=== PATIENT | male | born 1970 | race Caucasian/White ===

== ENCOUNTER 2025-01-07 10:34 | Emergency (ER) | payer BC, MEDICAID, SELFPAY ==
[2025-01-07 10:36] VITALS: BMI 32.9
[2025-01-07 10:47] VITALS: BP 159/99; PULSE 145; RESP 20; TEMP 36.7; O2SAT 95
--- NOTE | 2025-01-07 10:51 | EKG_ITS ---
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
--- NOTE | 2025-01-07 10:53 | PD.EDRME ---
Rapid Medical Screening Exam RME Arrival date/time: 01/07/25 10:34 54-year-old male presents the emergency room today for acute alcohol intoxication patient was clean from alcohol for approximately 3 years and started drinking 3 days ago patient is here with brother is very concerned Chief Complaint: General Adult/Misc Complain Vital signs: Vital Signs Temperature 98.1 F 01/07/25 10:47 Pulse Rate 145 H 01/07/25 10:47 Respiratory Rate 20 01/07/25 10:47 Blood Pressure 159/99 H 01/07/25 10:47 Pulse Oximetry (%) 95 01/07/25 10:47 Oxygen Delivery Method Room Air 01/07/25 10:47
[2025-01-07 11:22] LABS: Basophils # (Auto) 0.1 Thou/mm3 (0.0-0.2); Basophils % (Auto) 1 % (0-2.5); Eosinophils # (Auto) 0.1 Thou/mm3 (0.0-0.5); Eosinophils % (Auto) 1 % (0-10); Hematocrit 50.9 % (41.0-53.0); Hemoglobin 17.9 g/dL (13.5-16.0); Immature Granulocytes % (Auto) 0 % (0-0); Immature Granulocytes Auto 0.03 Thou/mm3 (0.00-0.00); Lymphocytes # (Auto) 3.7 Thou/mm3 (1.0-4.8); Lymphocytes % (Auto) 30 % (10-50); Mean Corpuscular HGB Conc 35.2 g/dl (31.0-37.0); Mean Corpuscular Hemoglobin 30.2 pg (25.0-35.0); Mean Corpuscular Volume 86 fL (80-100); Monocytes # (Auto) 0.4 Thou/mm3 (0.0-0.8); Monocytes % (Auto) 3 % (0-12); Neutrophils % (Auto) 65 % (37-80); Nucleated Red Blood Cell % 0 /100 WBC (0); Platelet Count 347 Thou/mm3 (140-440); RDW Standard Deviation 40.1 fL (35.1-43.9); Red Blood Count 5.92 Miln/mm3 (4.50-5.90); White Blood Count 12.3 Thou/mm3 (3.8-10.6)
[2025-01-07 11:23] LABS: Amphetamine/Methamp Scrn,U Negative (Negative); Barbiturate Screen,Urine Negative (Negative); Benzodiazepines Screen,Urine Negative (Negative); Benzoylecgonine Screen, Ur Negative (Negative); Fentanyl Screen,Urine Negative (Negative); Opiate Screen,Urine Negative (Negative); THC Screen,Urine Negative (Negative)
[2025-01-07 11:50] LABS: Alanine Aminotransferase 101 U/L (10-49); Albumin, Serum 4.6 gm/dL (3.5-5.0); Albumin/Globulin Ratio 1.6 (1.2-2.2); Alcohol, Blood Medical 348.9 mg/dL (0-10.0); Alkaline Phosphatase 137 U/L (46-116); Anion Gap 18 (7-16); Aspartate Amino Transferase 111 U/L (0-34); BUN/Creatinine Ratio 11 Ratio (12-20); Bilirubin,Total 0.7 mg/dL (0.3-1.2); Blood Urea Nitrogen 16 mg/dL (9-23); Calcium 8.4 mg/dL (8.3-10.6); Calcium (Corrected) 8.4 mg/dL (8.5-10.1); Carbon Dioxide 19.1 mMol/L (20.0-31.0); Chloride 101 mMol/L (98-107); Creatinine (Component) 1.4 mg/dL (0.6-1.3); Estimated Creatinine Clearance 61.4 mL/min (>60); Globulin 2.9 gm/dL (2.3-3.5); Osmolality,Calculated 299 (275-295); Potassium 3.7 mMol/L (3.4-5.1); Sodium 138 mMol/L (136-145); Total Protein 7.5 gm/dL (5.7-8.2); Troponin I < 0.020 ng/mL (0.0-0.045); eGFR 59 See Note
[2025-01-07 11:52] LABS: Glucose 515 mg/dL (74-106)
--- NOTE | 2025-01-07 12:02 | PC.NURSE ---
PT REFUSED TO BE ADMITTED IN THE HOSPITAL DESPITE EDUCATION BY DR. PACHECO AT BEDSIDE REGARDING RISKS OF LEAVING AMA. PT STARTED TO GET DRESSED AND WALKED OUT OF UNIT, PER MANAGEMENT TECH AT BEDSIDE. RN HAD NO CHANCE TO PERSUADE PT TO STAY PT WAS ALREADY WALKING OUT OF UNIT. RN UNABLE TO PERFORM ASSESSMENTS AT THIS TIME. PT LEFT AMA WITHOUT SIGNING AMA FORM.
--- NOTE | 2025-01-07 12:12 | PD.EDADULT ---
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 PACHECO MAIN ED EVALUATION: 54 year old male with history of hypertension and diabetes presents to the ED brought in by brother for alcohol intoxication. Patient reports he has been drinking heavily for 1 week and during that time not taking his Metformin. While in the ED patient has no complaints and was brought in at the urgence of his brother. Patient was refusing to stay and was advised to stay for monitoring, check his electrolytes, and insulin drip. However, patient became very angry, took off his gown and refused to stay in the ED. Patient eloped. Related Data Home Medications ?Medication ?Instructions ?Recorded ?Confirmed lisinopril 10 mg tablet 20 mg PO QDAY 01/26/19 06/20/24 metformin 500 mg tablet 1,000 mg PO BID 01/26/19 06/20/24 Allergies Allergy/AdvReac Type Severity Reaction Status Date / Time No Known Allergies Allergy Verified 01/07/25 12:23 Review of Systems Review of Systems Narrative Review of Systems: Gen: No fever, no chills, no weight loss EYES: No discharge, no visual changes, no pain HEENT: No ear pain, no congestion, no sore throat PULM: no shortness of breath, no cough, no congestion CV: No chest pain, no dyspnea on exertion, no palpitations, no chest tightness GI: No nausea, no vomiting, no diarrhea, no pain, no constipation : No frequency, no urgency,? no dysuria Musc/skel: No joint pain, no back pain Skin: No rash, no ecchymosis, no lesions Neuro: No weakness, no headache Past Medical History Past Medical History CARDIAC: Positive Hypertension ENDOCRINE: Positive Diabetes Mellitus Type 2 Surgical History SURGICAL: Negative Cardiac Surgery, Endocrine Surgery, Ear Surgery, Abdominal Surgery, Nephrectomy, Joint Replacement, Neurologic Surgery or Vasectomy Social History SMOKING STATUS: Never smoker ED Exam General Limitations: Present no limitations General appearance: Present alert, in no apparent distress and other (Smells of alcohol, no slurred speech) Head Head exam: Present atraumatic, normocephalic and normal inspection Eye Eye exam: Present normal appearance, PERRL and EOMI ENT ENT exam: Present normal exam, normal oropharynx and mucous membranes moist Neck Neck exam: Present normal inspection, full ROM, trachea midline and other (Old healed tracheostomy scar ) Chest Chest inspection: Present normal inspection and symmetric chest wall rise Respiratory Respiratory exam: Present normal lung sounds bilaterally Cardiovascular Cardiovascular exam: Present regular rate, normal rhythm and normal heart sounds Abdominal Exam Abdominal exam: Present soft and normal bowel sounds Extremities Exam Extremities exam: Present normal inspection and full ROM Back Exam Back exam: Present normal inspection and full ROM Neurological Exam Neurological exam: Present alert, oriented X3 and CN II-XII intact Psychiatric Psychiatric exam: Present normal affect and normal mood Skin Skin exam: Present warm, dry, intact and normal color Course Course Course Narrative: 1212: Patient left against medical advise Quality Measures none Orders Category Date Time Status EKG (ED ONLY) *Do not use* NOW Care 01/07/25 10:51 Completed EKG (ED Only) Stat Exams 01/07/25 10:51 Draft Alcohol, Blood Medical Stat Lab 01/07/25 11:11 Completed CBC Stat Lab 01/07/25 11:11 Completed Comprehensive Metabolic Panel Stat Lab 01/07/25 11:11 Completed Drug Screen,Urine Stat Lab 01/07/25 11:07 Completed Troponin I Stat Lab 01/07/25 11:11 Completed Sodium Chloride 0.9% 1000 ml [Ns] 1,000 ml Med 01/07/25 12:01 Discontinued IV 999 mls/hr Sodium Chloride 0.9% 1000 ml [Ns] 1,000 ml Med 01/07/25 12:02 Discontinued IV 999 mls/hr Vital Signs Vital signs: Vital Signs Temperature 98.1 F 01/07/25 10:47 Pulse Rate 145 H 01/07/25 10:47 Respiratory Rate 20 01/07/25 10:47 Blood Pressure 159/99 H 01/07/25 10:47 Pulse Oximetry (%) 95 01/07/25 10:47 Oxygen Delivery Method Room Air 01/07/25 10:47 Pulse ox is 95% on room air which is adequate. Critical Care Time Critical Care Time Critical Care Time: Yes Total Critical Care Time (min.): 35 Attestation: The high probability of sudden, clinically significant deterioration in the patient's condition required the highest level of my preparedness to intervene urgently. The services I provided to this patient were to treat and/or prevent clinically significant deterioration. Services included the following: chart data review, reviewing nursing notes and/or old charts, documentation time, store sales consultant collaboration regarding findings and treatment options, medication orders and management, direct patient care, vital sign assessments and ordering, interpreting and reviewing diagnostic studies and lab tests. Aggregate critical care time includes only time during which I was engaged in work directly related to the patient's care, as described above, whether at bedside or elsewhere in the Emergency Department. It did not include time spent performing other reported procedures or the services of residents, students, nurses or physician assistants. Discharge Plan Plan Patient Disposition: Left Against Medical Advice Prescriptions/Referrals Prescriptions/Med Rec: No Action metformin 500 mg tablet 1,000 mg PO BID lisinopril 10 mg tablet 20 mg PO QDAY Referrals: Rob Orellana MD [Primary Care Provider] - In 1 week Problem List Clinical Impression: Alcoholic intoxication Patient/Caregiver Discharge Instructions Print Language: Panamanian MDM Patient Acuity High Acuity (complete MDM) Clinical Information Provided by: patient and family (Brother ) Medical Records reviewed [facility] (I reviewed admission from 06/20/2024 through 06/21/2024 for alcohol intoxication) Meds/Rx considered, not ordered None Labs/Rad/Tests considered, not ordered None Describe: As noted above Chronic Illness/Social Conditions which may negatively complicate care or outcome(s)-explain: ETOH/drugs/substance abuse Explain: Alcoholism EKG EKG Interpretation(s): EKG at 10:55 AM shows sinus tachycardia, rate 141, TX 118ms, QT 288ms, QTc, 442, normal axis, normal intervals, no acute ischemic changes, no STEMI. Labs Labs: Interpreted by ar Lab(s) Interpretation(s): As noted above Imaging Imaging interpretation: none or see narrative above Medication Administration(s) Medication Administration History Discontinued Medications Sodium Chloride (Ns) 1,000 mls @ 999 mls/hr IV .Q1H1M ONE Stop: 01/07/25 13:01 Sodium Chloride (Ns) 1,000 mls @ 999 mls/hr IV .Q1H1M ONE Stop: 01/07/25 13:02 See above
== END 2025-01-07 12:11 | disposition left against medical advice (07) ==
PROVIDERS: Nurse Practitioner Primary Care; Emergency Provider Emergency Medicine; PCP Family Medicine
DX: F10.129 Alcohol abuse with intoxication, unspecified (principal); R00.0 Tachycardia, unspecified; I10 Essential (primary) hypertension; Y90.8 Blood alcohol level of 240 mg/100 ml or more; Z53.29 Procedure and treatment not carried out because of patient's decision for other reasons
CPT/HCPCS: 36415; 80053; 80307; 80320; 82010; 82803; 84484; 85025; 93005; 99291; G0480

== ENCOUNTER 2025-01-07 12:19 | Emergency (ER) | payer BC, MEDICAID, SELFPAY ==
--- NOTE | 2025-01-07 12:24 | PC.NURSE ---
PT BROUGHT BACK BY BROTHER. WHEN ASKED PT IF HE WAS WANTING TO BE TREATED BY THE MD, PT REPLIES I DON'T WANT TO BE ADMITTED. EXPLAINED THAT UNTIL ALL TESTS ARE BACK WON'T KNOW IF HE WILL NEED TO BE ADMITTED. INFORMED THAT SOME OF HIS LABS FROM EARLIER ARE ABNORMAL. PT AGREES TO BE TREATED NOW BUT REPEATS I DON'T WANT TO HAVE TO STAY.
[2025-01-07 12:35] VITALS: BP 122/95; PULSE 142; RESP 22; TEMP 36.7; O2SAT 94; BMI 31.4
[2025-01-07] MEDS: SODIUM CHLORIDE 0.9% 1000 ML 1,000 ML 999 ML IV ×3 (12:57→14:38)
[2025-01-07] MEDS: POTASSIUM CHLORIDE 20 mEq TABCR 40 MEQ PO (12:58)
--- NOTE | 2025-01-07 13:07 | PD.EDADULT ---
ED General RME/HPI General Chief complaint: General Adult/Misc Complain Stated complaint: BEEN DRINKING, JUST LEFT AMA Time Seen by Provider: 01/07/25 12:28 Arrival date/time: 01/07/25 12:19 Limitations: no limitations RME / HPI RME / HPI narrative: 54 year old male with history of hypertension and diabetes presents to the ED brought in by brother for alcohol intoxication. Patient reports he has been drinking heavily for 1 week and during that time not taking his Metformin. While in the ED patient has no complaints and was brought in at the urgence of his brother. Patient was refusing to stay and was advised to stay for monitoring, check his electrolytes, and insulin drip. However, patient became very angry, took off his gown and refused to stay in the ED. Patient left against medical advise at 12:12 today and returned at 12:20. Related Data Home Medications ?Medication ?Instructions ?Recorded ?Confirmed lisinopril 10 mg tablet 20 mg PO QDAY 01/26/19 06/20/24 metformin 500 mg tablet 1,000 mg PO BID 01/26/19 06/20/24 Allergies Allergy/AdvReac Type Severity Reaction Status Date / Time No Known Allergies Allergy Verified 01/07/25 12:23 Review of Systems Review of Systems Narrative Review of Systems: Gen: No fever, no chills EYES: No discharge, no pain HEENT: No ear pain, no congestion, no sore throat PULM: no shortness of breath, no cough, no congestion CV: No chest pain, no palpitations, no chest tightness GI: No nausea, no vomiting, no diarrhea, no pain, no constipation : No frequency, no urgency,? no dysuria Musc/skel: No joint pain, no back pain Skin: No rash, no ecchymosis, no lesions Psyc: No hallucinations, no depression Heme/Lymph: No easy bleeding or bruising tendencies Neuro: No weakness, no headache Past Medical History Past Medical History CARDIAC: Positive Hypertension ENDOCRINE: Positive Diabetes Mellitus Type 2 Family History FAMILY HISTORY: Negative Family Cancer Surgical History SURGICAL: Negative Cardiac Surgery, Endocrine Surgery, Ear Surgery, Abdominal Surgery, Nephrectomy, Joint Replacement, Neurologic Surgery or Vasectomy Social History SMOKING STATUS: Never smoker ED Exam General Limitations: Present no limitations General appearance: Present alert, in no apparent distress and other (smells of alcohol, no slurred speech ) Head Head exam: Present atraumatic, normocephalic and normal inspection Eye Eye exam: Present normal appearance, PERRL and EOMI ENT ENT exam: Present normal exam, normal oropharynx and mucous membranes moist Neck Neck exam: Present full ROM, trachea midline and other (old healed tracheostomy scar noted ) Chest Chest inspection: Present normal inspection and symmetric chest wall rise Respiratory Respiratory exam: Present normal lung sounds bilaterally Cardiovascular Cardiovascular exam: Present regular rate, normal rhythm and normal heart sounds Abdominal Exam Abdominal exam: Present soft and normal bowel sounds Extremities Exam Extremities exam: Present normal inspection and full ROM Back Exam Back exam: Present normal inspection and full ROM Neurological Exam Neurological exam: Present alert, oriented X3 and CN II-XII intact Psychiatric Psychiatric exam: Present normal affect and normal mood Skin Skin exam: Present warm, dry, intact and normal color Course Quality Measures none Orders Category Date Time Status Mainframe Software Developer Q4H START 00 Care 01/07/25 13:18 Completed Miscellaneous Nursing Order NOW Care 01/07/25 14:31 Completed Miscellaneous Nursing Order NOW Care 01/07/25 14:32 Completed Beta Hydroxybutyrate Stat Lab 01/07/25 13:10 Completed Urinalysis Stat Lab 01/07/25 13:45 Completed VBG [Venous Blood Gas] Stat Lab 01/07/25 13:10 Completed Insulin Reg 100 Units/100 ml [Myxredlin] Med 01/07/25 12:28 Discontinued 100 unit in 100 ml IV 0.1 unit/kg/hr Insulin Regular Med 01/07/25 14:27 Discontinued 6 unit SC X1 ONE Ondansetron Inj [Zofran Inj] Med 01/07/25 14:06 Discontinued 4 mg IV X1 ONE Potassium Chloride [K-Dur] Med 01/07/25 12:28 Discontinued 40 meq PO X1 ONE Sodium Chloride 0.9% 1000 ml [Ns] 1,000 ml Med 01/07/25 12:27 Discontinued IV 999 mls/hr Sodium Chloride 0.9% 1000 ml [Ns] 1,000 ml Med 01/07/25 12:28 Discontinued IV 999 mls/hr Sodium Chloride 0.9% 1000 ml [Ns] 1,000 ml Med 01/07/25 14:28 Discontinued IV 999 mls/hr Reevaluation(s) Reevaluation #1: We reviewed all the results, analysis, and treatment plans. Patient is amenable to discharge. Strict return precautions were outlined. Patient was discharged in stable condition. Time: 15:25 Vital Signs Vital signs: Vital Signs Temperature 98.1 F 01/07/25 12:35 Pulse Rate 142 H 01/07/25 12:35 Respiratory Rate 22 H 01/07/25 12:35 Blood Pressure 122/95 H 01/07/25 12:35 Pulse Oximetry (%) 94 L 01/07/25 12:35 Oxygen Delivery Method Room Air 01/07/25 12:35 Pulse ox is 94% on room air which is adequate. Critical Care Time Critical Care Time Critical Care Time: Yes Total Critical Care Time (min.): 35 Attestation: The high probability of sudden, clinically significant deterioration in the patient's condition required the highest level of my preparedness to intervene urgently. The services I provided to this patient were to treat and/or prevent clinically significant deterioration. Services included the following: chart data review, reviewing nursing notes and/or old charts, documentation time, websphere commerce consultant collaboration regarding findings and treatment options, medication orders and management, direct patient care, vital sign assessments and ordering, interpreting and reviewing diagnostic studies and lab tests. Aggregate critical care time includes only time during which I was engaged in work directly related to the patient's care, as described above, whether at bedside or elsewhere in the Emergency Department. It did not include time spent performing other reported procedures or the services of residents, students, nurses or physician assistants. Discharge Plan Plan Patient Disposition: HOME (Self Care) Prescriptions/Referrals Prescriptions/Med Rec: No Action metformin 500 mg tablet 1,000 mg PO BID lisinopril 10 mg tablet 20 mg PO QDAY Referrals: Amanda Ashraf FNP-C [Primary Care Provider] - In 1 week Problem List Clinical Impression: Alcoholic intoxication, Hyperglycemia without ketosis Patient/Caregiver Discharge Instructions Education Materials: ED Diabetes with High Blood Sugar, ED Alcohol Intoxication Additional Instructions: Do not drink alcohol in excess, stop alcohol completely for better health. You can follow-up with your primary care doctor and/or [facility] if you feel ready for alcohol and or drug rehabilitation. Feel free return to the emergency department sooner if symptoms worsen or if you notice any new, issues. Print Language: Wolof Stand Alone Forms: Laurie Award Info., Patient Portal Info Letter MDM Patient Acuity High Acuity (complete MDM) Narrative: Lina King, am scribing for and in the presence of Dr. Zavala. Clinical Information Provided by: patient and family Medical Records reviewed [facility] (I reviewed admission from 06/20/2024 through 06/21/2024 for alcohol intoxication ) Meds/Rx considered, not ordered None Labs/Rad/Tests considered, not ordered None Chronic Illness/Social Conditions which may negatively complicate care or outcome(s)-explain: ETOH/drugs/substance abuse EKG EKG not done (EKG was performed earlier today prior to leaving against medical advise ) Labs Labs: Interpreted by ri Lab(s) Interpretation(s): As noted above Imaging Imaging interpretation: none or see narrative above Medication Administration(s) Medication Administration History Discontinued Medications Sodium Chloride (Ns) 1,000 mls @ 999 mls/hr IV .Q1H1M ONE Stop: 01/07/25 13:27 Last Infusion: 01/07/25 14:05 Dose: Infused Documented By: Admin: 01/07/25 12:58 Dose: 999 mls/hr Documented By: SIXTO Insulin Human Regular (Myxredlin) 100 unit in 100 mls @ 8.85 mls/hr IV .[id number] PRN; Protocol PRN Reason: PER PROTOCOL Stop: 02/06/25 12:27 Last Titration: 01/07/25 14:33 Dose: 0 unit/kg/hr, 0 mls/hr Documented By: MARY Co-signed By: BENEDICTO Titration: 01/07/25 14:16 Dose: 0.1 unit/kg/hr, 8.85 mls/hr Documented By: MARY Co-signed By: BENEDICTO Admin: 01/07/25 13:16 Dose: 0.1 unit/kg/hr, 8.85 mls/hr Documented By: SIXTO Co-signed By: PETERSON Sodium Chloride (Ns) 1,000 mls @ 999 mls/hr IV .Q1H1M ONE Stop: 01/07/25 13:28 Last Infusion: 01/07/25 14:00 Dose: Infused Documented By: Admin: 01/07/25 12:57 Dose: 999 mls/hr Documented By: SIXTO Sodium Chloride (Ns) 1,000 mls @ 999 mls/hr IV .Q1H1M ONE Stop: 01/07/25 15:28 Last Infusion: 01/07/25 16:08 Dose: Infused Documented By: Admin: 01/07/25 14:38 Dose: 999 mls/hr Documented By: MARY Insulin Human Regular (Insulin Hum Regular 1 Unit/0.01 Ml (Per Unit)) 6 unit SC X1 ONE Stop: 01/07/25 14:28 Last Admin: 01/07/25 14:39 Dose: 6 unit Documented By: MARY Co-signed By: SIXTO Ondansetron HCl (Ondansetron Inj 2 Mg/Ml Inj 2 Ml) 4 mg IV X1 ONE; Protocol Stop: 01/07/25 14:07 Last Admin: 01/07/25 14:40 Dose: 4 mg Documented By: MARY Potassium Chloride (Potassium Chloride 20 Meq Tabcr) 40 meq PO X1 ONE Stop: 01/07/25 12:29 Last Admin: 01/07/25 12:58 Dose: 40 meq Documented By: SIXTO See above
[2025-01-07 13:16] LABS: Base Excess, Venous -7 (-3-3); O2 Saturation, Venous 95 % (96-97); PCO2, Venous 25 mmHg (36-56); PO2, Venous 69 mmHg (15-58); pH, Venous 7.41 (7.33-7.66)
[2025-01-07] MEDS: INSULIN REG 100 UNITS/100 ML 100 UNIT/100 ML BAG 8.85 UNIT IV (13:16)
[2025-01-07 13:19] VITALS: PULSE 127
[2025-01-07 13:20] LABS: Beta Hydroxybutyrate 0.3 mmol/L (<0.6)
[2025-01-07 13:52] LABS: Collection Type, Urine Clean Catch; Squamous Epithelial Cell,Urine 0 /hpf (0-5)
[2025-01-07 14:31] LABS: Bacteria,Urine Rare; Bilirubin,Urine Negative (Negative); Blood,Urine 1+ (Negative); Clarity,Urine Clear (Clear/Hazy); Color,Urine Lt-Yellow (Lt Yel-Yel); Glucose, Urine 4+ (Negative); Ketones,Urine 1+ (Negative); Leukocyte Esterase,Urine Negative (Negative); Nitrite,Urine Negative (Negative); PH,Urine 6.5 (5.0-7.0); Protein,Urine 2+ (Neg - Trace); RBC,Urine 2 /hpf (0-3); Specific Gravity,Urine 1.043 (1.001-1.035); Urobilinogen,Urine Negative mg/dL (0.0-1.0); WBC,Urine < 1 /hpf (0-5)
--- NOTE | 2025-01-07 14:33 | PC.NURSE ---
PER DR. PACHECO, STOP INSULIN DRIP NOW; WILL PUT IN MORE ORDERS.
[2025-01-07] MEDS: INSULIN HUM REGULAR 1 UNIT/0.01 ML (PER UNIT) 6 UNIT SC (14:39)
[2025-01-07] MEDS: ONDANSETRON INJ 2 MG/ML INJ 2 ML 4 MG IV (14:40)
[2025-01-07 14:43] VITALS: BP 153/89; PULSE 138; RESP 15; TEMP 37.1; O2SAT 96
[2025-01-07 16:09] VITALS: BP 156/100; PULSE 126; RESP 18; TEMP 37.4; O2SAT 100
== END 2025-01-07 16:15 | disposition home or self-care (01) ==
PROVIDERS: Emergency Provider Emergency Medicine; PCP Nurse Practitioner Family
DX: F10.129 Alcohol abuse with intoxication, unspecified (principal); E11.65 Type 2 diabetes mellitus with hyperglycemia; Y90.8 Blood alcohol level of 240 mg/100 ml or more; Z79.84 Long term (current) use of oral hypoglycemic drugs
CPT/HCPCS: 36415; 81001; 82010; 82803; 96361; 96365; 96372; 96375; 99284; J1815; J2405; J7030; A9270

== ENCOUNTER 2025-01-12 14:29 | Inpatient (IN) | payer BC, MEDICAID, SELFPAY ==
[2025-01-12 14:31] VITALS: BMI 32.9
[2025-01-12 15:05] VITALS: BP 79/47; BP 85/50; PULSE 115; RESP 18; TEMP 37.2; O2SAT 97
--- NOTE | 2025-01-12 15:09 | XR_ITS ---
Examination: CT brain head without contrast. 2-D sagittal coronal reconstructions Date and time of exam:January 12, 2025 1535 hrs. Indications: Onset slurred speech today CTDI: vol (mGy):52.7 DLP: (mGycm):1086 Technique: Multiple CT axial sections of the brain have been obtained, 5 mm slice thickness. Contrast has not been administered. 2-D sagittal, coronal reconstructions have been obtained Low dose protocols were performed. One or more of the following dose reduction techniques were used; automated exposure control, adjustment of the mA and/or KV according to patient size, use of iterative reconstruction technique. Findings: No significant ventricular enlargement. Intra-axial or extra-axial hemorrhage density is not seen. No mass effect or midline shift Basal cisterns are not remarkable. Fourth ventricle is midline. Cranial vault intact. Impression: Negative for acute hemorrhage, mass effect or midline shift Advise clinical correlation and follow-up accordingly If symptoms persist, consider brain MRI follow-up, stroke protocol
--- NOTE | 2025-01-12 15:09 | EKG_ITS ---
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
--- NOTE | 2025-01-12 15:15 | PD.EDRME ---
Rapid Medical Screening Exam [facility] Arrival date/time: 01/12/25 14:29 54-year-old male with a history of hypertension and type 2 diabetes is brought in by his son with a chief complaint of abdominal pain, generalized weakness, slurred speech x 4 days. The son states that his father was a chronic alcoholic with been sober for the last 3 years and began drinking 4 days ago. Patient's son states that he was drinking all morning and has been drinking heavily for the last 4 days. I have greeted and performed a focused initial assessment of this patient. A comprehensive ED assessment and evaluation of the patient, analysis of all test results, and completion of the medical decision making process will be conducted by additional ED providers. Chief Complaint: Neuro Symptoms/Deficit Vital signs: Vital Signs Temperature 99 F 01/12/25 15:05 Pulse Rate 115 H 01/12/25 15:05 Respiratory Rate 18 01/12/25 15:05 Blood Pressure 79/47 L 01/12/25 15:05 Pulse Oximetry (%) 97 01/12/25 15:05 Oxygen Delivery Method Room Air 01/12/25 15:05 Vital signs reviewed by provider: Yes
--- NOTE | 2025-01-12 16:00 | PD.EDALCOH ---
ED Alcohol RME/HPI General Chief Complaint: Neuro Symptoms/Deficit Stated Complaint: ABD/RECTAL PAIN, SLURRED SPEECH Time Seen by Provider: 01/12/25 15:41 Arrival date/time: 01/12/25 14:29 RME / HPI RME / HPI narrative: 01/12/25 14:29 54-year-old male with a history of hypertension and type 2 diabetes is brought in by his son with a chief complaint of abdominal pain, generalized weakness, slurred speech x 4 days. The son states that his father was a chronic alcoholic with been sober for the last 3 years and began drinking 4 days ago. Patient's son states that he was drinking all morning and has been drinking heavily for the last 4 days. I have greeted and performed a focused initial assessment of this patient. A comprehensive ED assessment and evaluation of the patient, analysis of all test results, and completion of the medical decision making process will be conducted by additional ED providers. DR. ROSENBAUM MAIN ED EVALUATION: 54 year old male presents to the ED brought in by brother for evaluation of chest and abdominal pain today. Per brother, patient has been on a 14 day melton, drinking a half a pint and up to a pint of tequila a day. Patients brother reports today while at home the patient had complained of his chest and abdomen hurting, otherwise no other complaints were reported. While in the ED patient has no complaints. Denies fevers, chills, sweats, vomiting, diarrhea, constipation, or urinary symptoms. Related Data Home Medications ?Medication ?Instructions ?Recorded ?Confirmed lisinopril 10 mg tablet 20 mg PO QDAY 01/26/19 06/20/24 metformin 500 mg tablet 1,000 mg PO BID 01/26/19 06/20/24 Allergies Allergy/AdvReac Type Severity Reaction Status Date / Time No Known Allergies Allergy Verified 01/12/25 14:33 Review of Systems Review of Systems ROS Unobtainable: unobtainable due to mental status and unobtainable due to medical condition Narrative Review of Systems: Constitutional: DENIES; Fevers Eyes: DENIES; Loss of vision Head/Ear/Nose: DENIES; Loss of hearing Throat: DENIES; Dysphagia Cardiovascular: Per brother patient had complained of chest pain. DENIES; dyspnea or syncope Respiratory: DENIES; Shortness of breath Gastrointestinal: Per brother patient had complained of abdominal pain. DENIES; Rectal bleeding or melena. Genitourinary: DENIES; Dysuria (painful or difficult urination) Musculoskeletal: DENIES; Arthralgia (pain in a joint),; Skin: DENIES; Rash Neurological: DENIES; Loss of function or movement Psychiatric: SEE HPI +14 day [facility] Endocrinology: DENIES; Weight change Hematologic/Lymphatic: DENIES; Abnormal bruising Allergic/Immunologic: DENIES; Urticaria (hives) Past Medical History Past Medical History CARDIAC: Positive Hypertension ENDOCRINE: Positive Diabetes Mellitus Type 2 Family History FAMILY HISTORY: Negative Family Cancer Surgical History SURGICAL: Negative Cardiac Surgery, Endocrine Surgery, Ear Surgery, Abdominal Surgery, Nephrectomy, Joint Replacement, Neurologic Surgery or Vasectomy Social History SMOKING STATUS: Never smoker ED Exam Narrative Physical exam: Physical Exam: General: The vital signs were reviewed. Patient is tachycardic and hypotensive on arrival. He is abdomen drinking heavily according to his brother who is at bedside. His sugar is also high. He has a history of diabetes. The patient is non-toxic, in no apparent distress and appears healthy with a patent airway, no respiratory distress and has no apparent circulatory problems. Head & Scalp: Normocephalic, atraumatic. Face: Appears normal and is without lesions, deformity. Ears: Left external pinna appears normal. Right external pinna appears normal. Eyes: The sclera is anicteric. No obvious photophobia. The Left and Right Orbit/Lid/Conjunctiva appears normal without swelling, discoloration or injection. Nose: The nose is without deformity, discharge or tenderness; Throat: Appears normal. The mucous membranes are pink and moist without exudates, redness or mass seen. The tongue appears normal. Neck: The neck is supple and no apparent mass or adenopathy. Chest: The chest wall is normal in size and symmetry and has no chest wall tenderness or crepitus. The patient displays normal ventilator effort without retractions, accessory muscle use and has adequate air movement bilaterally with no wheezes and no rales. Cardiovascular: Regular rate and rhythm; No murmurs, rubs, or gallops; Gastrointestinal: The abdomen appears normal. No obvious hernias or mass. The abdomen is soft and benign, non-distended, with no pain, no guarding and no rebound tenderness. Bowel sounds are present and normal sounding. No CVA tenderness. Genitourinary: Back/Spine: Normal inspection Extremities/Musculoskeletal/lymphatic: The bilateral upper and lower extremities are warm. There is no evidence of arterial insufficiency. There is no evidence of venous insufficiency/edema. The patient spontaneously moves bilateral upper and lower extremities with no pain and no limitation of movement. There is no apparent, injury or trauma. Skin: The skin is warm, dry and intact. No rashes. No petechia. No purpura. No abnormal bruising. The color is appropriate with no cyanosis. Mental status/Psychiatric: Mental status speaks and interacts as if he is intoxicated otherwise his mental status is cooperative and cordial. The patient has no apparent delusions, visual hallucinations, no apparent audible hallucinations. The patient has no apparent suicidal thoughts/ideation and no apparent homicidal thoughts/ideation. Neurological: The patient is awake, alert, interactive, cordial, cooperative and is oriented to name and situation. The patient follows commands and answers historical question with no impairment. There is no visual disturbance apparent. The pupils are equal and reactive bilaterally with normal eye movements and no diplopia The bilateral upper and lower extremities have normal strength, normal range of motion and normal functioning. The gait, station and balance were not tested due to to acuity and probably acute intoxication Course Quality Measures none Orders Category Date Time Status Bedside Blood Glucose NOW Care 01/12/25 15:09 Active EKG (ED ONLY) *Do not use* NOW Care 01/12/25 15:09 Completed Insert IV STAT Care 01/12/25 15:08 Active Orthostatic Vitals NOW Care 01/12/25 15:[address] chest abdomen pelvis wo Stat Exams 01/12/25 18:[address] head/brain wo con Stat Exams 01/12/25 15:09 Completed EKG (ED Only) Stat Exams 01/12/25 15:09 Draft Alcohol, Blood Medical Stat Lab 01/12/25 16:05 Completed BNP [B-Type Natriuretic Peptide] Stat Lab 01/12/25 16:05 Completed Beta Hydroxybutyrate Stat Lab 01/12/25 15:58 Ordered Blood Culture (Lab) Stat Lab 01/12/25 18:14 Received CBC Stat Lab 01/12/25 16:05 Completed Comprehensive Metabolic Panel Stat Lab 01/12/25 16:05 Completed Drug Screen,Urine Stat Lab 01/12/25 15:16 Ordered Lactate (Lactic Acid) Stat Lab 01/12/25 15:58 Ordered Lipase Stat Lab 01/12/25 16:05 Completed Troponin I Stat Lab 01/12/25 16:05 Completed Urinalysis Stat Lab 01/12/25 15:09 Ordered Urine Culture Stat Lab 01/12/25 15:09 Ordered Venous Blood Gas Stat Lab 01/12/25 15:58 Ordered Folic Acid Inj Med 01/12/25 15:54 Discontinued 1 mg IVP X1 ONE Piper/Tazo 3.375 gm Premix [Zosyn] Med 01/12/25 18:15 Active 3.375 gm in 50 ml IV X1 Sodium Chloride 0.9% 1000 ml [Ns] 1,000 ml Med 01/12/25 15:57 Active IV 150 mls/hr Sodium Chloride 0.9% 1000 ml [Ns] 1,000 ml Med 01/12/25 15:09 Discontinued IV 999 mls/hr Sodium Chloride 0.9% 1000 ml [Ns] 1,000 ml Med 01/12/25 15:57 Discontinued IV 999 mls/hr Sodium Chloride 0.9% 1000 ml [Ns] 2,000 ml Med 01/12/25 18:15 Active IV 999 mls/hr Thiamine Inj [Vitamin B-1 Inj] Med 01/12/25 16:00 Discontinued 100 mg IV X1 ONE Thiamine Inj [Vitamin B-1 Inj] 100 mg Med 01/12/25 15:57 Discontinued Sodium Chloride 0.9% [Ns] 100 ml IV X1 Vital Signs Vital signs: Vital Signs Temperature 99 F 01/12/25 15:05 Pulse Rate 115 H 01/12/25 15:05 Respiratory Rate 18 01/12/25 15:05 Blood Pressure 79/47 L 01/12/25 15:05 Pulse Oximetry (%) 97 01/12/25 15:05 Oxygen Delivery Method Room Air 01/12/25 15:05 Pulse ox is 97% on room air which is adequate. Critical Care Time Critical Care Time Critical Care Time: Yes Total Critical Care Time (min.): 45 Attestation: The high probability of sudden, clinically significant deterioration in the patient's condition required the highest level of my preparedness to intervene urgently. The services I provided to this patient were to treat and/or prevent clinically significant deterioration. Services included the following: chart data review, reviewing nursing notes and/or old charts, documentation time, creative consultant collaboration regarding findings and treatment options, medication orders and management, direct patient care, vital sign assessments and ordering, interpreting and reviewing diagnostic studies and lab tests. Aggregate critical care time includes only time during which I was engaged in work directly related to the patient's care, as described above, whether at bedside or elsewhere in the Emergency Department. It did not include time spent performing other reported procedures or the services of residents, students, nurses or physician assistants. Discharge Plan Plan Patient Disposition: Admit Acute Care w/in Hospital Disposition Comment: Hospitalist to admit Prescriptions/Referrals Prescriptions/Med Rec: No Action metformin 500 mg tablet 1,000 mg PO BID lisinopril 10 mg tablet 20 mg PO QDAY Referrals: Rob Orellana MD [Primary Care Provider] - In 1 week Problem List Clinical Impression: Alcoholic intoxication, Dehydration, severe, Acute kidney injury, Pancreatitis, Diabetes mellitus with hyperglycemia Patient/Caregiver Discharge Instructions Print Language: Northern Irish Stand Alone Forms: Laurie Award Info., Patient Portal Info Letter Alcohol MDM Narrative MDM Narrative: ILina, am scribing for and in the presence of Dr. Rosenbaum. Patient is a 54-year-old comes in having been drinking heavily and son is quite worried about his severe alcohol intake. He is a diabetic and his sugars been high. He denies any falls or trauma there is no GI bleeding. Medical workup reveals alcohol level quite high at almost 0.4. His lipase is elevated suggesting early possible pancreatitis. Initially he was hypotensive and tachycardic and got 2 L of fluid his blood pressure came up to 120/70 and pulse came down to 106. His labs reveal he is got acute kidney injury with a sodium 130 potassium 3.5 chloride 95 CO2 is low at 14.3 anion gap is 21 BUN is elevated 34 and creatinine is much elevated 2.7. Glucose is 340. White count 7.5 hemoglobin 15.7 MCV of 86 Note the lactic acid venous blood gas were ordered but evidently were missed and are being drawn at 1820 hrs. Because patient has acute kidney injury severely dehydrated he clearly needs to be admitted. Dr. Hurd the resident was called and they will be admitting the patient. Also beta-hydroxybutyrate is pending. Because the bicarb is low even though he has no obvious source for infection we will give him 1 dose of Zosyn. And because he is intoxicated and could have other sources of infection we will get a CT of the chest abdomen pelvis without contrast. While the patient is being admitted Dr. Bean my partner has come on shift and will be in the background aware of this patient. Patient data External records reviewed:: [facility] previous records (I reviewed ED visit from 01/07/2025 ) Clinical information provided by:: patient and family (Brother adds to hpi ) Social determinants that could affect healthcare access:: alcohol use Patient has the following chronic illnesses:: HTN, DM, HLD How is presenting disease/condition affected by chronic disease/condition?: exacerbated by Evaluation data The following diagnostics were reviewed and interpreted by me:: lab results and radiology exam(s) (Sinus tachycardia, rate 110, no STEMI ) Lab and/or radiology exams considered but not ordered:: None Interpretation Summary: Ordering Physician: Jamil Daley Date of Service: 01/12/25 Procedure(s): CT head/brain wo con Accession Number(s): [id number] cc: Jamil Daley; Rob Orellana MD; Lobo Man MD~ Examination: CT brain head without contrast. 2-D sagittal coronal reconstructions Date and time of exam:January 12, 2025 1535 hrs. Indications: Onset slurred speech today CTDI: vol (mGy):52.7 DLP: (mGycm):1086 Technique: Multiple CT axial sections of the brain have been obtained, 5 mm slice thickness. Contrast has not been administered. 2-D sagittal, coronal reconstructions have been obtained Low dose protocols were performed. One or more of the following dose reduction techniques were used; automated exposure control, adjustment of the mA and/or KV according to patient size, use of iterative reconstruction technique. Findings: No significant ventricular enlargement. Intra-axial or extra-axial hemorrhage density is not seen. No mass effect or midline shift Basal cisterns are not remarkable. Fourth ventricle is midline. Cranial vault intact. Impression: Negative for acute hemorrhage, mass effect or midline shift Advise clinical correlation and follow-up accordingly If symptoms persist, consider brain MRI follow-up, stroke protocol Dictated By: Lobo Man MD Signed By: <Electronically signed by Lobo Man MD in OV> 01/12/25 1716 Medications / Prescriptions Medications or Prescriptions considered but not ordered:: None Medication administrations:: Medication Administration History Sodium Chloride (Ns) 1,000 mls @ 150 mls/hr IV .Q6H40M ONE Stop: 01/12/25 22:36 Piperacillin/Tazobactam/Dextrose (Zosyn) 3.375 gm in 50 mls @ 100 mls/hr IV X1 ONE Stop: 01/12/25 18:44 Sodium Chloride (Ns) 2,000 mls @ 999 mls/hr IV .Q2H1M ONE Stop: 01/12/25 20:15 Last Admin: 01/12/25 18:25 Dose: 999 mls/hr Documented By: MARLON Discontinued Medications Folic Acid (Folic Acid Inj 1 Mg/0.2 Ml) 1 mg IVP X1 ONE Stop: 01/12/25 15:55 Last Admin: 01/12/25 16:25 Dose: 1 mg Documented By: MARLON Sodium Chloride (Ns) 1,000 mls @ 999 mls/hr IV .Q1H1M ONE Stop: 01/12/25 16:09 Last Infusion: 01/12/25 18:18 Dose: Infused Documented By: Admin: 01/12/25 16:22 Dose: 999 mls/hr Documented By: MARLON Thiamine HCl 100 mg/ Sodium (Chloride) 101 mls @ 202 mls/hr IV X1 ONE Stop: 01/12/25 16:26 Last Admin: 01/12/25 16:24 Dose: Not Given Documented By: MARLON Non-Admin Reason: Cancelled by Provider Sodium Chloride (Ns) 1,000 mls @ 999 mls/hr IV .Q1H1M ONE Stop: 01/12/25 16:57 Last Infusion: 01/12/25 18:18 Dose: Infused Documented By: Admin: 01/12/25 16:22 Dose: 999 mls/hr Documented By: MARLON Thiamine HCl (Thiamine Inj 100 Mg/Ml Vial 2 Ml) 100 mg IV X1 ONE Stop: 01/12/25 16:01 Last Admin: 01/12/25 16:23 Dose: 100 mg Documented By: MARLON See above Consultations Consultation(s) initiated? (list below): Yes Consultation #1 (Physician, Specialty, Details): I spoke with resident Dr. English working with Dr. Patel. Discussed patients PMHx, HPI, ED course, exam findings, labs, and radiology results. The hospitalist agree to accept the patient for admission. Time: 18:05 Diagnosis Differential diagnosis alcohol: alcohol withdrawal delirium, hypomagnesemia, alcohol intoxication, alcohol ketoacidosis and alcohol withdrawal syndrome Most likely diagnosis given after review of the tests above:: Alcohol intoxication Dehydration FANNY Pancreatitis Admission Indicated Admission indicated?: indicated Admission Request Was there a request for admission?: Yes Admission Attestation Admission request attestation: Discussed case with [] from Hospitalist service regarding admission. Discussed patients ED course, exam findings, labs, and radiology results. The Hospitalist [agrees,declines] to accept the patient for admission. Disposition Plan Disposition Plan: Admit
[2025-01-12 16:20] VITALS: BP 120/70; PULSE 106; RESP 12; TEMP 36.8; O2SAT 98
[2025-01-12] MEDS: SODIUM CHLORIDE 0.9% 1000 ML 1,000 ML 999 ML IV ×2 (16:22)
[2025-01-12] MEDS: THIAMINE INJ 100 MG/ML VIAL 2 ML IV (16:23)
[2025-01-12] MEDS: FOLIC ACID INJ 1 MG/0.2 ML IVP (16:25)
[2025-01-12 16:37] LABS: Basophils % (Auto) 0 % (0-2.5); Eosinophils % (Auto) 0 % (0-10); Hematocrit 44.2 % (41.0-53.0); Hemoglobin 15.7 g/dL (13.5-16.0); Immature Granulocytes % (Auto) 0 % (0-0); Immature Granulocytes Auto 0.02 Thou/mm3 (0.00-0.00); Lymphocytes # (Auto) 2.9 Thou/mm3 (1.0-4.8); Lymphocytes % (Auto) 39 % (10-50); Mean Corpuscular HGB Conc 35.5 g/dl (31.0-37.0); Mean Corpuscular Hemoglobin 30.4 pg (25.0-35.0); Mean Corpuscular Volume 86 fL (80-100); Monocytes # (Auto) 0.3 Thou/mm3 (0.0-0.8); Monocytes % (Auto) 4 % (0-12); Neutrophils # (Auto) 4.2 Thou/mm3 (1.8-7.7); Neutrophils % (Auto) 56 % (37-80); Nucleated Red Blood Cell % 0 /100 WBC (0); Platelet Count 177 Thou/mm3 (140-440); RDW Standard Deviation 40.4 fL (35.1-43.9); Red Blood Count 5.17 Miln/mm3 (4.50-5.90); White Blood Count 7.5 Thou/mm3 (3.8-10.6)
[2025-01-12 17:02] LABS: B-Type Natriuretic Peptide < 20 pg/mL (0-100)
[2025-01-12 17:28] LABS: Alanine Aminotransferase 87 U/L (10-49); Albumin, Serum 4.2 gm/dL (3.5-5.0); Alcohol, Blood Medical 398.2 mg/dL (0-10.0); Alkaline Phosphatase 134 U/L (46-116); Anion Gap 21 (7-16); Aspartate Amino Transferase 82 U/L (0-34); BUN/Creatinine Ratio 13 Ratio (12-20); Bilirubin,Total 0.4 mg/dL (0.3-1.2); Blood Urea Nitrogen 34 mg/dL (9-23); Calcium 7.8 mg/dL (8.3-10.6); Calcium (Corrected) 7.8 mg/dL (8.5-10.1); Chloride 95 mMol/L (98-107); Creatinine (Component) 2.7 mg/dL (0.6-1.3); Estimated Creatinine Clearance 31.8 mL/min (>60); Globulin 2.1 gm/dL (2.3-3.5); Glucose 340 mg/dL (74-106); Lipase 429 U/L (12-53); Osmolality,Calculated 281 (275-295); Potassium 3.5 mMol/L (3.4-5.1); Sodium 130 mMol/L (136-145); Total Protein 6.3 gm/dL (5.7-8.2); Troponin I < 0.020 ng/mL (0.0-0.045); eGFR 27 See Note
[2025-01-12 17:33] LABS: Carbon Dioxide 14.3 mMol/L (20.0-31.0)
--- NOTE | 2025-01-12 18:11 | XR_ITS ---
Examination: CT chest, without intravenous contrast. CT abdomen, without intravenous contrast. CT pelvis, without intravenous contrast. 2-D sagittal and coronal reconstructions. 3-D reconstructions. Date and time of exam:January 12, 2025 1908 hrs. Indications: Hyperglycemia, severe with acidosis today CTDI vol (mgy) 9.06 DLP (MGycm)711 Technique: Multiple CT images, 3.0 mm slice thickness, obtained chest, abdomen, pelvis, with the high-resolution 64 slice scanner.. Sagittal and coronal 2-D reconstructions are obtained. 3-D reconstructions Low dose protocols were performed. One or more of the following dose reduction techniques were used; automated exposure control, adjustment of the mA and/or KV according to patient size, use of iterative reconstruction technique. Findings: No thoracic aortic aneurysmal dilatation Main pulmonary artery segment 29 mm Heavy calcification proximal left anterior descending coronary artery Mild enlargement cardiac contour No paratracheal tracheobronchial or bronchopulmonary adenopathy No pneumonia or pulmonary edema or pleural disease 6 mm pulmonary nodule right lower lobe Severe diffuse fatty infiltration throughout the liver Marked thickening of the gastric mucosa Contracted gallbladder Spleen is not enlarged Significant perinephric stranding with mild hydronephrosis, which on the left side is secondary to 7 mm distal left ureterovesical junction calculus Transverse prostate dimension 38 mm Impression: 6 mm pulmonary nodule right lower lobe, with this study as baseline recommend 6 month follow-up CT chest without contrast No pneumonia or pulmonary edema Gastritis pattern Prominent perinephric stranding consistent with urinary tract infection with bilateral mild hydronephrosis, on the left side secondary to 7 mm distal left ureterovesical junction calculus
--- NOTE | 2025-01-12 18:14 | EVENTNT_ITS ---
<Statement entered by Anders English MD - 01/12/25 18:35> I discussed with and supervised the technical support intern physician involved in the care of this patient. Patient assessment and plan was discussed with entire medicine team, including my attending. I agree with the assessment and plan as documented by technical support intern doctor. Patient care was discussed with my attending physician Dr. Amanda English, PGY-2 Documentation for date of: 01/12/25 Event Note Event Note: Mr. Dominguez is a 54-year-old male with past medical history of significant alcohol use, type II diabetes mellitus, hypertension who presented to the emergency department for abdominal pain, generalized weakness, slurred speech for the last 4 days. Patient was found to have an elevated blood alcohol level of 398.2, on chemistry panel patient was noted to have venous CO2 14.3, anion gap 21, considering patient has high anion gap metabolic acidosis, requested ED physician to obtain lactic acid level and beta hydroxybutyrate to further investigate the high anion gap metabolic acidosis. Patient also noted to have acute kidney injury, currently running IV fluids, received about 2 L bolus IV thiamine and folate. Patient will be signed out to the night team for possible admission after beta hydroxybutyrate and lactic acid levels are resulted. Possible upgrade to ICU considering patient has high anion gap in setting of diabetes, possible DKA. Case discussed with Attending Dr. Patel and Dr. English PGY2. Cortney Marie PGY1 Disclaimer: This note was dictated by speech recognition. Minor errors in production supv may be present due to voice recognition software. Attending physician note: I discussed with and supervised the resident physician who took care of this patient. I agree with the assessment and plan as above.
[2025-01-12] MEDS: SODIUM CHLORIDE 0.9% 1000 ML 2,000 ML 999 ML IV (18:25)
[2025-01-12] MEDS: PIPER/TAZO 3.375 GM PREMIX 3.375 GM/50 ML BAG IV (18:29)
[2025-01-12 18:37] VITALS: BP 115/55; PULSE 110; RESP 20; TEMP 36.8; O2SAT 96
[2025-01-12 19:10] LABS: Lactate (Lactic Acid) 3.4 mMol/L (0.4-2.0)
[2025-01-12 19:11] LABS: Base Excess, Venous -10 (-3-3); O2 Saturation, Venous 71 % (96-97); PCO2, Venous 35 mmHg (36-56); PO2, Venous 42 mmHg (15-58); pH, Venous 7.27 (7.33-7.66)
[2025-01-12 19:15] LABS: Beta Hydroxybutyrate 1.3 mmol/L (<0.6)
[2025-01-12 19:33] LABS: Collection Type, Urine Clean Catch; Squamous Epithelial Cell,Urine 0 /hpf (0-5)
[2025-01-12 19:56] LABS: Bilirubin,Urine Negative (Negative); Blood,Urine 1+ (Negative); Clarity,Urine Clear (Clear/Hazy); Color,Urine Colorless (Lt Yel-Yel); Glucose, Urine 4+ (Negative); Ketones,Urine Trace (Negative); Leukocyte Esterase,Urine Negative (Negative); Nitrite,Urine Negative (Negative); Protein,Urine Trace (Neg - Trace); RBC,Urine 1 /hpf (0-3); Specific Gravity,Urine 1.008 (1.001-1.035); Urobilinogen,Urine Negative mg/dL (0.0-1.0); WBC,Urine 2 /hpf (0-5)
[2025-01-12 20:17] LABS: Amphetamine/Methamp Scrn,U Negative (Negative); Barbiturate Screen,Urine Negative (Negative); Benzodiazepines Screen,Urine Negative (Negative); Benzoylecgonine Screen, Ur Negative (Negative); Fentanyl Screen,Urine Negative (Negative); Opiate Screen,Urine Negative (Negative); THC Screen,Urine Negative (Negative)
--- NOTE | 2025-01-12 20:54 | EDNOTE_ITS ---
Emergency Room Addendum Addendum Narrative: 1800: Care assumed from Dr. Rosenbaum, the previous shift emergency physician. Past medical, surgical, social and family history reviewed. Vitals and home medications reviewed. Results and treatment plan discussed. I will assume the care of the patient at this time and will follow the patient. Please refer to the emergency department record for history and examination from initial visit. Patient has high gap acidosis likely secondary to his inebriation. Patient denies having any abdominal or back pain. On exam, the patient does not have any abdominal or flank tendereness. Labs show the patient has FANNY. Will consult an admission to the hospitalist. At 2126, I discussed case with Dr. Workman from nephrology regarding consultation. Discussed patients ED course, exam findings, labs, and radiology results. States to give the patient tamsulosin. States that since the patient does not have any flank pain or hematuria, patient does not need to be transferred. At 2149, I discussed case with Dr. Nguyen from Hospitalist service regarding admission. Discussed patients ED course, exam findings, labs, and radiology results. The Hospitalist agrees to accept the patient for admission. RADIOLOGY RESULTS: [facility] Report Signed Patient: KIMBERLY HADDAD. Record#: [id number] Birthdate: 1970 Age/Sex: 54 / M Location: [facility] Attending Dr: Ordering Physician: Cordell Rosenbaum MD Date of Service: 01/12/25 Procedure(s): CT chest abdomen pelvis wo Accession Number(s): [id number] cc: Rob Orellana MD; Cordell Rosenbaum MD; Lobo Man MD~ Examination: CT chest, without intravenous contrast. CT abdomen, without intravenous contrast. CT pelvis, without intravenous contrast. 2-D sagittal and coronal reconstructions. 3-D reconstructions. Date and time of exam:January 12, 2025 1908 hrs. Indications: Hyperglycemia, severe with acidosis today CTDI vol (mgy) 9.06 DLP (MGycm)711 Technique: Multiple CT images, 3.0 mm slice thickness, obtained chest, abdomen, pelvis, with the high-resolution 64 slice scanner.. Sagittal and coronal 2-D reconstructions are obtained. 3-D reconstructions Low dose protocols were performed. One or more of the following dose reduction techniques were used; automated exposure control, adjustment of the mA and/or KV according to patient size, use of iterative reconstruction technique. Findings: No thoracic aortic aneurysmal dilatation Main pulmonary artery segment 29 mm Heavy calcification proximal left anterior descending coronary artery Mild enlargement cardiac contour No paratracheal tracheobronchial or bronchopulmonary adenopathy No pneumonia or pulmonary edema or pleural disease 6 mm pulmonary nodule right lower lobe Severe diffuse fatty infiltration throughout the liver Marked thickening of the gastric mucosa Contracted gallbladder Spleen is not enlarged Significant perinephric stranding with mild hydronephrosis, which on the left side is secondary to 7 mm distal left ureterovesical junction calculus Transverse prostate dimension 38 mm Impression: 6 mm pulmonary nodule right lower lobe, with this study as baseline recommend 6 month follow-up CT chest without contrast No pneumonia or pulmonary edema Gastritis pattern Prominent perinephric stranding consistent with urinary tract infection with bilateral mild hydronephrosis, on the left side secondary to 7 mm distal left ureterovesical junction calculus Dictated By: Lobo Man MD Signed By: <Electronically signed by Lobo Man MD in OV> 01/12/252040
[2025-01-12 21:08] VITALS: BP 159/87; PULSE 115; RESP 18; TEMP 36.8; O2SAT 99
[2025-01-12] MEDS: SODIUM CHLORIDE 0.9% 1000 ML 1,000 ML 150 ML IV (21:08)
[2025-01-12 21:32] LABS: Albumin, Serum 3.7 gm/dL (3.5-5.0); Anion Gap 19 (7-16); BUN/Creatinine Ratio 13 Ratio (12-20); Blood Urea Nitrogen 24 mg/dL (9-23); Calcium 7.1 mg/dL (8.3-10.6); Calcium (Corrected) 7.3 mg/dL (8.5-10.1); Chloride 107 mMol/L (98-107); Creatinine (Component) 1.9 mg/dL (0.6-1.3); Estimated Creatinine Clearance 45.2 mL/min (>60); Glucose 159 mg/dL (74-106); Osmolality,Calculated 286 (275-295); Phosphorous 3.3 mg/dL (2.4-5.1); Potassium 3.6 mMol/L (3.4-5.1); Sodium 140 mMol/L (136-145); eGFR 41 See Note
[2025-01-12 21:42] LABS: Carbon Dioxide 14.3 mMol/L (20.0-31.0)
[2025-01-12 22:05] LABS: Reflex Lactate? Y
[2025-01-12 22:24] LABS: Magnesium 1.9 mg/dL (1.6-2.6)
[2025-01-12] MEDS: POTASSIUM CHL 10 mEq IVPB 10 MEQ/100 ML BAG 100 MEQ IV (22:54)
[2025-01-12] MEDS: INSULIN LISPRO (AdmeLOG) 1 UNIT/0.01 ML UNIT SC (22:54)
[2025-01-12] MEDS: INSULIN GLARGINE (Lantus) 5 UNIT/0.05 ML (PER 5 UNITS) 18 UNIT SC (22:55)
[2025-01-12] MEDS: chlordiazePOXIDE HCl 25 MG CAPSULE 50 MG PO (22:56)
--- NOTE | 2025-01-12 22:58 | ESHP_ITS ---
Documentation for date of: 01/12/25 [facility] History of Present Illness History of present illness: The patient is a 54-year-old male with significant past medical history of diabetes mellitus type 2, hypertension and alcohol abuse disorder presented to ED with chief complaint of generalized weakness and increased blood sugar. The patient had recently visited ED on 01/07/2025 with similar symptoms. The patient reporting having relapse of his alcohol abuse disorder, after getting out of his rehab facility, and has been binge drinking for past couple weeks. He has been taking half of a pint of tequila every day for about 2 weeks. He denied headache, lightheadedness, sore throat, chest pain, SOB, abdominal pain, any changes in bowel or bladder habit, or any leg swelling. In the ED his vitals were initially blood pressure 79/49, pulse 115 with other vitals WNL. CBC WNL, chemistry panel revealed potassium 3.6, bicarb 14.3, anion gap 21, creatinine 2.7, GFR 27, blood sugar 340, lactic acid 3.4, corrected calcium 7.3, AST/ALT 82/87, ALP 134, tropes negative, lipase 429, BHB 1.3. UA revealed 4+ glucose, 1+ blood, negative for leukocyte esterase or nitrite. U tox revealed Ethyl alcohol level 398.2. Head CT was negative for acute hemorrhage, mass effect or midline shift. EKG revealed sinus tachycardia. Chest/abdomen/pelvis CT revealed 6 mm pulmonary nodule on right lower lobe, no pneumonia or pulmonary edema, gastritis pattern, prominent perinephric stranding consistent with UTI with bilateral mild hydronephrosis, on the left side secondary to 7 mm distal left ureterovesicular junction calculus. PMH: As mentioned above SHX: Unremarkable Family history: Unremarkable Social history: Past heavy drinker, has been recently out from rehab, and has been binge drinking for past 2 weeks, denies smoking or any illicit drug use Medications: Lisinopril and metformin Allergies: No known drug allergies Patient received 4 L of IV bolus fluid, thiamine 100 Mg IV x 1, folic acid 1 Mg IV x 1, Zosyn 3.375 mg IV x 1 and admitted to telemetry unit for further management of hypovolemic shock, possible mild DKA and alcohol withdrawal. Review of Systems Review of Systems Systems Reviewed: All systems reviewed, normal except as documented Exam Vital Signs Temp Pulse Resp BP Pulse Ox O2 Del Method 98.3 F 115 H 18 159/87 H 99 Room Air 01/12/25 21:08 01/12/25 21:08 01/12/25 21:08 01/12/25 21:08 01/12/25 21:08 01/12/25 21:08 Narrative Exam General: Middle-aged man, cooperative, no acute distress, Alert and Oriented x 3 HEENT: Moist mucous membranes, oropharynx clear Neck: Supple, No masses, No JVD CVS: S1S2 Regular rate and rhythm, No murmurs, rubs or gallops Lungs: Clear to auscultation with no accessory use, no wheeze no rhonchi Abd: Soft, NT/ND, +BS, no organomegaly Ext: No edema, warm and well perfused, shaky extremities Skin: No rash Psych: Mildly anxious Results: Labs 01/12/25 16:05 01/12/25 20:24 Labs: Short CBC 01/12/25 Range/Units 16:05 WBC 7.5 (3.8-10.6) Thou/mm3 Hgb 15.7 D (13.5-16.0) g/dL Hct 44.2 (41.0-53.0) % Plt Count 177 D (140-440) Thou/mm3 BMP 01/12/25 01/12/25 16:05 20:24 Sodium 130 L 140 D Potassium 3.5 3.6 Chloride 95 L 107 Carbon Dioxide 14.3 L* 14.3 L* BUN 34 H 24 H Creatinine 2.7 H D 1.9 H D Glucose 340 H 159 H D Calcium 7.8 L 7.1 L Cardiac Enzymes 01/12/25 Range/Units 16:05 Troponin I < 0.020 (0.0-0.045) ng/mL Liver Function 01/12/25 01/12/25 Range/Units 16:05 20:24 Total Bilirubin 0.4 (0.3-1.2) mg/dL AST 82 H (0-34) U/L ALT 87 H (10-49) U/L Alkaline Phosphatase 134 H (46-116) U/L Albumin 4.2 3.7 D (3.5-5.0) gm/dL Urine 01/12/25 Range/Units 18:45 Urine Color Colorless A (Lt Yel-Yel) Urine Clarity Clear (Clear/Hazy) Urine pH 6.0 (5.0-7.0) Ur Specific Y[place] 1.008 (1.001-1.035) Urine Protein Trace (Neg - Trace) Urine Glucose (UA) 4+ A (Negative) ABG Interpretation ABG results: 01/12/25 18:22 VBG pH 7.27 L VBG pCO2 35 L VBG pO2 42 VBG Base Excess -10 L Quality Measures Quality Measures none Medications Home Medications and Allergies Home Medications ?Medication ?Instructions ?Recorded ?Confirmed ?Type lisinopril 10 mg tablet 20 mg PO QDAY 01/26/1906/20 History metformin 500 mg tablet 1,000 mg PO BID 01/26/19 History Allergies Allergy/AdvReac Type Severity Reaction Status Date / Time No Known Allergies Allergy Verified 01/12/25 14:33 Visit Medications Acetaminophen (Acetaminophen 325 Mg Tablet) 650 mg PO Q6H PRN PRN Reason: Fever >101.5 Stop: 02/11/25 22:48 Calcium Carbonate (Calcium Carbonate 600 Mg Tablet) 600 mg PO BID SHIRLENE Stop: 02/11/25 22:59 Chlordiazepoxide HCl (Chlordiazepoxide Hcl 25 Mg Capsule) 50 mg PO Q8H SHIRLENE Stop: 01/17/25 22:14 Last Admin: 01/12/25 22:56 Dose: 50 mg Dextrose (Dextrose 50%-Water Inj 50 Ml Syringe) 25 ml IV Q15MIN PRN PRN Reason: BG 50-70 responsive npo pt Stop: 02/11/25 21:59 Dextrose (Dextrose 50%-Water Inj 50 Ml Syringe) 50 ml IV Q15MIN PRN PRN Reason: BG <50 OR BG <70 & pt unresponsive Stop: 02/11/25 21:59 Folic Acid (Folic Acid 1 Mg Tablet) 1 mg PO BID SHIRLENE Stop: 01/18/25 08:59 Glucagon (Glucagon Inj 1 Mg Vial) 1 mg IM Q15MIN PRN PRN Reason: BG <70, and no IV access Heparin Sodium (Porcine) (Heparin Sod Inj 5000 Unit/Ml Vial) 5,000 unit SC Q8HR [facility]IRLENE Stop: 01/27/25 05:59 Potassium Chloride (Kcl Ivpb) 10 meq in 100 mls @ 100 mls/hr IV Q1H [facility]LENE Stop: 01/13/25 01:57 Last Admin: 01/12/25 22:54 Dose: 100 mls/hr Sodium Chloride (Ns) 1,000 mls @ 125 mls/hr IV .Q8H [facility] Stop: 02/11/25 22:59 Insulin Glargine (Insulin Glargine (Lantus) 5 Unit/0.05 Ml (Per 5 Units)) 18 unit SC HS [facility] Stop: 02/11/25 21:59 Last Admin: 01/12/25 22:55 Dose: 18 unit Insulin Human Lispro (Insulin Lispro (Admelog) 1 Unit/0.01 Ml Unit) 0 unit SC Q6H [facility]; Protocol Stop: 02/11/25 21:59 Last Admin: 01/12/25 22:54 Dose: 1 unit Lorazepam (Lorazepam 2 Mg/Ml Vial) 0.5 mg IV Q4HR PRN PRN Reason: CIWA SCORE 8-13 Stop: 01/17/25 22:01 Lorazepam (Lorazepam 2 Mg/Ml Vial) 2 mg IVP Q6H PRN PRN Reason: Agitation (Severe), breakthrou Stop: 01/17/25 22:14 Lorazepam (Lorazepam 2 Mg/Ml Vial) 1 mg IV Q4HR PRN PRN Reason: CIWA SCORE 14-19 Stop: 01/17/25 22:07 Lorazepam (Lorazepam 0.5 Mg Tablet) 0.5 mg PO Q4HR PRN PRN Reason: CIWA Score 2-6 Stop: 01/17/25 22:01 Pantoprazole Sodium (Pantoprazole Inj 40 Mg Vial) 40 mg IVP BID [facility] Stop: 02/11/25 22:59 Thiamine HCl (Thiamine 100 Mg Tablet) 100 mg PO BID [facility] Stop: 01/18/25 08:59 Discontinued Medications Folic Acid (Folic Acid Inj 1 Mg/0.2 Ml) 1 mg IVP X1 ONE Stop: 01/12/25 15:55 Last Admin: 01/12/25 16:25 Dose: 1 mg Sodium Chloride (Ns) 1,000 mls @ 999 mls/hr IV .Q1H1M ONE Stop: 01/12/25 16:09 Last Infusion: 01/12/25 18:18 Dose: Infused Thiamine HCl 100 mg/ Sodium (Chloride) 101 mls @ 202 mls/hr IV X1 ONE Stop: 01/12/25 16:26 Last Admin: 01/12/25 16:24 Dose: Not Given Sodium Chloride (Ns) 1,000 mls @ 999 mls/hr IV .Q1H1M ONE Stop: 01/12/25 16:57 Last Infusion: 01/12/25 18:18 Dose: Infused Sodium Chloride (Ns) 1,000 mls @ 150 mls/hr IV .Q6H40M ONE Stop: 01/12/25 22:36 Last Admin: 01/12/25 21:08 Dose: 150 mls/hr Piperacillin/Tazobactam/Dextrose (Zosyn) 3.375 gm in 50 mls @ 100 mls/hr IV X1 ONE Stop: 01/12/25 18:44 Last Infusion: 01/12/25 19:04 Dose: Infused Sodium Chloride (Ns) 2,000 mls @ 999 mls/hr IV .Q2H1M ONE Stop: 01/12/25 20:15 Last Infusion: 01/12/25 20:30 Dose: Infused Thiamine HCl (Thiamine Inj 100 Mg/Ml Vial 2 Ml) 100 mg IV X1 ONE Stop: 01/12/25 16:01 Last Admin: 01/12/25 16:23 Dose: 100 mg Assessment & Plan Plan The patient is a 54-year-old male with significant past medical history of diabetes mellitus type 2, hypertension and alcohol abuse disorder presented to ED with chief complaint of generalized weakness and increased blood sugar. The patient is admitted to telemetry unit for further management of hypovolemic shock, possible mild DKA and alcohol withdrawal. #Generalized weakness 2/2 #Hypovolemia, improved 2/2 #Alcohol intoxication #High anion gap metabolic acidosis Acidosis likely multifactorial from alcohol intoxication, elevated lactate, fanny. Given very mild elevation in BHB, low suspicion for DKA Patient presented with chief complaint of generalized weakness and has been binge drinking for the past 2 weeks, and has history of diabetes mellitus type 2 Initial blood sugar was 340, BHB 1.3, anion gap 21, bicarb 14.3 and blood pressure of 79/47, pulse 115. Lactic acid was 3.4 initially Anion gap, lactic acid, blood glucose improved significantly after 4 L IV bolus fluid. - Received 4 L IV bolus fluid in the ED - Started on maintenance IV fluid normal saline 150 cc/h - Trend lactic acid until less than 2 every 3 hourly - Daily a.m. labs for CBC, CMP and electrolytes #FANNY Prerenal in the setting of hypovolemic shock Presented with creatinine of 2.7 that improved to 1.9 after 4 L of IV bolus fluid - Renally dose medications - Avoid nephrotoxic drugs - On maintenance normal saline 150 cc/h - Daily a.m. labs for CMP and electrolytes - Rn Midwife Dr. Workman consulted, appreciate recommendations #Alcohol withdrawal #Alcohol abuse disorder The patient was binge drinking until this morning, and has been having generalized weakness for past couple of days, urine Ethyl alcohol level was 398.2 - Started on CIWA protocol - Started on thiamine 100 Mg p.o. twice daily and folic acid 1 Mg daily - Daily a.m. labs for CMP and electrolytes, and replete electrolytes as needed - Social service referral done #Mild transaminitis Secondary to binge drinking Presented with AST/ALT 82/87, ALP 134 - Daily a.m. labs were CMP #Diabetes mellitus type 2 #Hyperglycemia UA is positive for 4+ glucose and trace protein - Started on insulin Lantus 18 units daily at night and initial sliding scale insulin lispro every 6 hourly along with fingerstick blood sugar - Consider resuming lisinopril as tolerated #Right lower lobe pulmonary nodule #Bilateral hydronephrosis #Left nephrolithiasis Chest/abdomen/pelvis CT revealed 6 mm pulmonary nodule on right lower lobe, no pneumonia or pulmonary edema, gastritis pattern, prominent perinephric stranding consistent with UTI with bilateral mild hydronephrosis, on the left side secondary to 7 mm distal left ureterovesicular junction calculus. - Follow-up CT chest in 6 months for pulmonary nodule - Received Zosyn IV x 1 in the ED, may consider adding antibiotics if develops any UTI symptoms - Encourage oral rehydration - May consider adding tamsulosin 0.4 Mg daily for left nephrolithiasis #Hypocalcemia Presented with corrected calcium level 7.3 Likely nutritional deficiency - Started on calcium carbonate 600 Mg p.o. twice daily - Daily a.m. labs for corrected calcium Health maintenance: Dispo: Patient admitted to telemetry unit for further management of hypovolemic shock, possible DKA and alcohol withdrawal. Diet: Carb consistent diet DVT prophylaxis: Subcu heparin every 8 hourly CODE STATUS: Full code The patient's management plan was discussed with my attending physician MD Patrice Middleton MD, PGY2
[2025-01-12 23:04] LABS: Lactic Acid, 3 HR 2.8 mMol/L (0.4-2.0)
[2025-01-13] VITALS: BP 137/86; PULSE 114; RESP 14; TEMP 36.8; O2SAT 99
[2025-01-13] MEDS: POTASSIUM CHL 10 mEq IVPB 10 MEQ/100 ML BAG 100 MEQ IV ×3 (00:03→02:34)
[2025-01-13] MEDS: PANTOPRAZOLE INJ 40 MG VIAL IVP ×3 (00:05→21:10)
[2025-01-13] MEDS: SODIUM CHLORIDE 0.9% 1000 ML 1,000 ML 125 ML IV ×4 (00:06→23:58)
[2025-01-13] MEDS: CALCIUM CARBONATE 600 MG TABLET PO ×3 (00:37→21:11)
[2025-01-13 04:00] VITALS: BP 143/87; PULSE 110; PULSE 98; RESP 14; TEMP 36.3; O2SAT 98
[2025-01-13] MEDS: HEPARIN SOD INJ 5000 UNIT/ML VIAL SC (05:13)
[2025-01-13] MEDS: chlordiazePOXIDE HCl 25 MG CAPSULE 50 MG PO (05:15)
[2025-01-13 05:48] VITALS: BMI 32.5
[2025-01-13 07:12] LABS: Basophils % (Auto) 0 % (0-2.5); Eosinophils % (Auto) 0 % (0-10); Hematocrit 36.7 % (41.0-53.0); Hemoglobin 13.1 g/dL (13.5-16.0); Immature Granulocytes % (Auto) 0 % (0-0); Immature Granulocytes Auto 0.03 Thou/mm3 (0.00-0.00); Lymphocytes # (Auto) 1.7 Thou/mm3 (1.0-4.8); Lymphocytes % (Auto) 20 % (10-50); Mean Corpuscular HGB Conc 35.7 g/dl (31.0-37.0); Mean Corpuscular Hemoglobin 30.3 pg (25.0-35.0); Mean Corpuscular Volume 85 fL (80-100); Monocytes # (Auto) 0.4 Thou/mm3 (0.0-0.8); Monocytes % (Auto) 4 % (0-12); Neutrophils # (Auto) 6.4 Thou/mm3 (1.8-7.7); Neutrophils % (Auto) 75 % (37-80); Nucleated Red Blood Cell % 0 /100 WBC (0); Platelet Count 123 Thou/mm3 (140-440); Red Blood Count 4.32 Miln/mm3 (4.50-5.90); White Blood Count 8.6 Thou/mm3 (3.8-10.6)
[2025-01-13 07:44] LABS: Alanine Aminotransferase 69 U/L (10-49); Albumin, Serum 3.6 gm/dL (3.5-5.0); Albumin/Globulin Ratio 1.7 (1.2-2.2); Alkaline Phosphatase 107 U/L (46-116); Anion Gap 15 (7-16); Aspartate Amino Transferase 73 U/L (0-34); BUN/Creatinine Ratio 12 Ratio (12-20); Blood Urea Nitrogen 17 mg/dL (9-23); Calcium 7.5 mg/dL (8.3-10.6); Calcium (Corrected) 7.8 mg/dL (8.5-10.1); Carbon Dioxide 16.7 mMol/L (20.0-31.0); Chloride 105 mMol/L (98-107); Creatinine (Component) 1.4 mg/dL (0.6-1.3); Estimated Creatinine Clearance 61.1 mL/min (>60); Globulin 2.1 gm/dL (2.3-3.5); Glucose 115 mg/dL (74-106); Magnesium 1.5 mg/dL (1.6-2.6); Osmolality,Calculated 276 (275-295); Phosphorous 1.6 mg/dL (2.4-5.1); Potassium 3.5 mMol/L (3.4-5.1); Sodium 137 mMol/L (136-145); Total Protein 5.7 gm/dL (5.7-8.2); eGFR 59 See Note
[2025-01-13 08:00] VITALS: BP 145/83; PULSE 129; PULSE 90; RESP 16; TEMP 36; O2SAT 98
[2025-01-13] MEDS: FOLIC ACID 1 MG TABLET PO ×2 (08:36→21:11)
[2025-01-13] MEDS: THIAMINE 100 MG TABLET PO ×2 (08:36→21:11)
[2025-01-13 08:45] LABS: Cardiac Risk Estimate 2.6 RATIO (4.0-6.7); Cholesterol 180 mg/dL (132-200); HDL Cholesterol 68 mg/dL (40-60); LDL Cholesterol,Calculated 91 mg/dL (0-130); Triglycerides 106 mg/dL (30-150)
--- NOTE | 2025-01-13 08:56 | PC.SS ---
Follow up note: On CWAL protocol. On IV fluids. Still in DKA.
--- NOTE | 2025-01-13 08:58 | PD.RESCONSUL ---
HPI Data of Consult Consult date: 01/13/25 Requesting Physician: Paul Patel MD Admitting Provider: Stef Nguyen MD Attending Provider: Paul Patel MD Primary Care Provider: Rob Orellana MD Consult Narrative Reason for consult: FANNY History of present illness: Informant niece, brother Mr. baker is a 54-year-old male with past medical history of diabetes, hypertension, alcohol abuse that had previously remain abstinence but recently relapsed with binge drinking that presented to the ED with complaints of generalized weakness. Patient was seen at bedside with his niece and her brother who explained that patient had previously remain abstinent from alcohol until 2 weeks ago when he traveled to [place] and thus when he started binge drinking for total of 2 weeks. He has been drinking half a pint of tequila every day for the last 2 weeks until he started complaining of generalized weakness the day prior to admission. In the ED patient was found to have ketoacidosis with a anion gap of 21 lactic acid of 3.4 alcohol level of 398 and an beta-hydroxybutyrate of 1.3 and glucose level of 340. Patient was also found to have an FANNY with a creatinine of 2.7 from a baseline of 1.0 and a bicarb of 14.3. Patient was given 3 L boluses of NS in the ED and was started on CIWA protocol. Nephrology team was consulted for FANNY as well as anion gap metabolic acidosis. cc:: cc: Paul Patel MD Review of Systems Review of Systems Systems Reviewed: All systems reviewed, normal except as documented Exam Vital Signs Temp Pulse Resp BP Pulse Ox O2 Del Method 96.8 F 90 16 145/83 H 98 Room Air 01/13/25 08:00 01/13/25 08:00 01/13/25 08:00 01/13/25 08:00 01/13/25 08:00 01/13/25 08:00 Narrative Exam Constitutional: Well nourished and in no acute distress CVS: RRR, S1 and S2 present, no murmurs, rubs or gallops . RESP: CTAB, no SOB, no rales, rhonchi or wheezing. No respiratory Distress GI: Large but soft with normal BS, Nontender/Nondistended. MSK: Full range of motion, No trauma or deformities or masses. Skin: Warm to touch, Dry. No rashes or lesions. No hematomas Neuro: pearl technician II-XII grossly intact. Sensation grossly intact. Psych: (AAO) x3 . There is mild tremors when patient extends his arms but he has no hallucinations Results Labs 01/13/25 06:30 01/13/25 16:08 Labs: Short CBC 01/12/25 01/13/25 Range/Units 16:05 06:30 WBC 7.5 8.6 (3.8-10.6) Thou/mm3 Hgb 15.7 D 13.1 L D (13.5-16.0) g/dL Hct 44.2 36.7 L (41.0-53.0) % Plt Count 177 D 123 L D (140-440) Thou/mm3 BMP 01/12/25 01/12/25 01/13/25 16:05 20:24 06:30 Sodium 130 L 140 D 137 Potassium 3.5 3.6 3.5 Chloride 95 L 107 105 Carbon Dioxide 14.3 L* 14.3 L* 16.7 L BUN 34 H 24 H 17 Creatinine 2.7 H D 1.9 H D 1.4 H D Glucose 340 H 159 H D 115 H Calcium 7.8 L 7.1 L 7.5 L Cardiac Enzymes 01/12/25 Range/Units 16:05 Troponin I < 0.020 (0.0-0.045) ng/mL Liver Function 01/12/25 01/12/25 01/13/25 Range/Units 16:05 20:24 06:30 Total Bilirubin 0.4 1.0 D (0.3-1.2) mg/dL AST 82 H 73 H (0-34) U/L ALT 87 H 69 H (10-49) U/L Alkaline Phosphatase 134 H 107 D (46-116) U/L Albumin 4.2 3.7 D 3.6 (3.5-5.0) gm/dL Urine 01/12/25 Range/Units 18:45 Urine Color Colorless A (Lt Yel-Yel) Urine Clarity Clear (Clear/Hazy) Urine pH 6.0 (5.0-7.0) Ur Specific [place] 1.008 (1.001-1.035) Urine Protein Trace (Neg - Trace) Urine Glucose (UA) 4+ A (Negative) ABG Interpretation ABG results: 01/12/25 18:22 VBG pH 7.27 L VBG pCO2 35 L VBG pO2 42 VBG Base Excess -10 L Quality Measures Quality Measures none Medications Home Medications and Allergies Home Medications ?Medication ?Instructions ?Recorded ?Confirmed ?Type lisinopril 10 mg tablet 10 mg PO QDAY 01/26/19 01/13/25 History atorvastatin 20 mg tablet 20 mg PO QDAY 01/13/25 01/13/25 History empagliflozin 12.5 mg-metformin 1 tab PO BID 01/13/25 01/13/25 History 1,000 mg tablet (Synjardy) ibuprofen 600 mg tablet (IBU) 600 mg PO TID PRN pain 01/13/25 01/13/25 History semaglutide 14 mg tablet (Rybelsus) 14 mg PO QDAY 01/13/25 01/13/25 History Allergies Allergy/AdvReac Type Severity Reaction Status Date / Time No Known Allergies Allergy Verified 01/12/25 14:33 Visit Medications Acetaminophen (Acetaminophen 325 Mg Tablet) 650 mg PO Q6H PRN PRN Reason: Fever >101.5 Stop: 02/11/25 22:48 Calcium Carbonate (Calcium Carbonate 600 Mg Tablet) 600 mg PO BID SHIRLENE Stop: 02/11/25 22:59 Last Admin: 01/13/25 08:36 Dose: 600 mg Chlordiazepoxide HCl (Chlordiazepoxide Hcl 25 Mg Capsule) 25 mg PO BID SHIRLENE Stop: 01/18/25 19:59 Dextrose (Dextrose 50%-Water Inj 50 Ml Syringe) 25 ml IV Q15MIN PRN PRN Reason: BG 50-70 responsive npo pt Stop: 02/11/25 21:59 Dextrose (Dextrose 50%-Water Inj 50 Ml Syringe) 50 ml IV Q15MIN PRN PRN Reason: BG <50 OR BG <70 & pt unresponsive Stop: 02/11/25 21:59 Folic Acid (Folic Acid 1 Mg Tablet) 1 mg PO BID SHIRLENE Stop: 01/18/25 08:59 Last Admin: 01/13/25 08:36 Dose: 1 mg Glucagon (Glucagon Inj 1 Mg Vial) 1 mg IM Q15MIN PRN PRN Reason: BG <70, and no IV access Heparin Sodium (Porcine) (Heparin Sod Inj 5000 Unit/Ml Vial) 5,000 unit SC Q8HR [facility] Stop: 01/27/25 05:59 Last Admin: 01/13/25 05:13 Dose: 5,000 unit Sodium Chloride (Ns) 1,000 mls @ 125 mls/hr IV .Q8H [facility] Stop: 02/11/25 22:59 Last Admin: 01/13/25 05:43 Dose: 125 mls/hr Sodium Phosphate 22.5 mmol/ (Sodium Chloride) 507.5 mls @ 82.778 mls/hr IV X1 ONE Stop: 01/13/25 14:20 Magnesium Sulfate (Magnesium Sulfate Ivpb) 4 gm in 50 mls @ 12.5 mls/hr IV X1 ONE Stop: 01/13/25 18:29 Insulin Glargine (Insulin Glargine (Lantus) 5 Unit/0.05 Ml (Per 5 Units)) 18 unit SC HS [facility] Stop: 02/11/25 21:59 Last Admin: 01/12/25 22:55 Dose: 18 unit Insulin Human Lispro (Insulin Lispro (Admelog) 1 Unit/0.01 Ml Unit) 0 unit SC Q6H [facility]; Protocol Stop: 02/11/25 21:59 Last Admin: 01/13/25 04:26 Dose: Not Given Lorazepam (Lorazepam 2 Mg/Ml Vial) 0.5 mg IV Q4HR PRN PRN Reason: CIWA SCORE 8-13 Stop: 01/17/25 22:01 Lorazepam (Lorazepam 2 Mg/Ml Vial) 2 mg IVP Q6H PRN PRN Reason: Agitation (Severe), breakthrou Stop: 01/17/25 22:14 Lorazepam (Lorazepam 2 Mg/Ml Vial) 1 mg IV Q4HR PRN PRN Reason: CIWA SCORE 14-19 Stop: 01/17/25 22:07 Lorazepam (Lorazepam 0.5 Mg Tablet) 0.5 mg PO Q4HR PRN PRN Reason: CIWA Score 2-6 Stop: 01/17/25 22:01 Pantoprazole Sodium (Pantoprazole Inj 40 Mg Vial) 40 mg IVP BID [facility] Stop: 02/11/25 22:59 Last Admin: 01/13/25 08:35 Dose: 40 mg Thiamine HCl (Thiamine 100 Mg Tablet) 100 mg PO BID [facility] Stop: 01/18/25 08:59 Last Admin: 01/13/25 08:36 Dose: 100 mg Discontinued Medications Chlordiazepoxide HCl (Chlordiazepoxide Hcl 25 Mg Capsule) 50 mg PO Q8H [facility] Stop: 01/17/25 22:14 Last Admin: 01/13/25 05:15 Dose: 50 mg Folic Acid (Folic Acid Inj 1 Mg/0.2 Ml) 1 mg IVP X1 ONE Stop: 01/12/25 15:55 Last Admin: 01/12/25 16:25 Dose: 1 mg Sodium Chloride (Ns) 1,000 mls @ 999 mls/hr IV .Q1H1M ONE Stop: 01/12/25 16:09 Last Infusion: 01/12/25 18:18 Dose: Infused Thiamine HCl 100 mg/ Sodium (Chloride) 101 mls @ 202 mls/hr IV X1 ONE Stop: 01/12/25 16:26 Last Admin: 01/12/25 16:24 Dose: Not Given Sodium Chloride (Ns) 1,000 mls @ 999 mls/hr IV .Q1H1M ONE Stop: 01/12/25 16:57 Last Infusion: 01/12/25 18:18 Dose: Infused Sodium Chloride (Ns) 1,000 mls @ 150 mls/hr IV .Q6H40M ONE Stop: 01/12/25 22:36 Last Infusion: 01/13/25 00:06 Dose: Infused Piperacillin/Tazobactam/Dextrose (Zosyn) 3.375 gm in 50 mls @ 100 mls/hr IV X1 ONE Stop: 01/12/25 18:44 Last Infusion: 01/12/25 19:04 Dose: Infused Sodium Chloride (Ns) 2,000 mls @ 999 mls/hr IV .Q2H1M ONE Stop: 01/12/25 20:15 Last Infusion: 01/12/25 20:30 Dose: Infused Potassium Chloride (Kcl Ivpb) 10 meq in 100 mls @ 100 mls/hr IV Q1H [facility] Stop: 01/13/25 01:57 Last Admin: 01/13/25 02:34 Dose: 100 mls/hr Thiamine HCl (Thiamine Inj 100 Mg/Ml Vial 2 Ml) 100 mg IV X1 ONE Stop: 01/12/25 16:01 Last Admin: 01/12/25 16:23 Dose: 100 mg Assessment & Plan Plan 54-year-old male with past medical history of diabetes, hypertension, alcohol abuse admitted for FANNY and anion gap metabolic acidosis #FANNY #Anion gap metabolic acidosis #Alcoholic ketoacidosis Patient presented with a creatinine of 2.7 from a baseline of 1.0. His anion gap was 21 on admission with a lactate level of 3.4, beta hydroxybutyrate level of 1.3, bicarb of 14.3 glucose of 340 and pH of 7.27 Patient's chief complaint was generalized weakness with mild nausea but no vomiting. He had previously abstained for over 3 years without alcohol but on recent trip to [facility] he started drinking again and had a episode of binge drinking half a pint of tequila for the last 2 weeks. Patient's ethyl alcohol level in the room was 398 Patient is FANNY and anion gap metabolic acidosis is likely due to alcoholic ketoacidosis with possible concomitant diabetic ketoacidosis His glucose has been easily controlled with sliding scale and recent blood sugar levels have been low at 76. Patient is tolerating diet well Plan: ? Continue aggressive IV fluid resuscitation ? Continue CIWA protocol ?Continue close monitoring of patient's bicarb and anion gap. ?Continue glucose control with insulin sliding scale ? Consider Bicitra for further support ? Will monitor renal function panel every 6 hours #Alcohol withdrawal #Alcohol abuse disorder #Mild transaminitis Secondary to binge drinking #Diabetes mellitus type 2 #Hyperglycemia #Right lower lobe pulmonary nodule #Bilateral hydronephrosis #Left nephrolithiasis #Hypocalcemia ?Managed by primary team. Thank you for allowing us to be part of patient's care during his time at [facility] I discussed patient's care with attending physician, Dr Jacinta Carbajal PGY3 Attending Provider Attestation/Addendum Patient seen and examined with resident physician Dr. Carbajal. Note reviewed, agree with findings and recommendations. Acute renal failure most likely related to prerenal azotemia. Patient also noted to have alcoholic ketoacidosis with anion gap. Agree with aggressive fluid resuscitation. Plan of care discussed with the dilma Handy at bedside who is also my patient. On CIWA protocol for alcoholism. Plan of care discussed with primary team. Thank you Dr. Soto for allowing me to participate in the care of Mr. Dominguez
[2025-01-13] MEDS: SOD PHOS ADDITIVE 22.5 MMOL in SODIUM CHLORIDE 0.9% 500 ML 500 ML 82.778 MMOL IV (09:10)
[2025-01-13 09:52] LABS: Base Excess, Venous -7 (-3-3); O2 Saturation, Venous 87 % (96-97); PCO2, Venous 33 mmHg (36-56); PO2, Venous 49 mmHg (15-58); pH, Venous 7.35 (7.33-7.66)
[2025-01-13 09:53] LABS: Lactate (Lactic Acid) 1.4 mMol/L (0.4-2.0)
[2025-01-13 09:57] LABS: Beta Hydroxybutyrate 3.6 mmol/L (<0.6)
[2025-01-13 10:16] LABS: Anion Gap 13 (7-16); BUN/Creatinine Ratio 12 Ratio (12-20); Blood Urea Nitrogen 16 mg/dL (9-23); Calcium 7.6 mg/dL (8.3-10.6); Carbon Dioxide 18.7 mMol/L (20.0-31.0); Chloride 106 mMol/L (98-107); Creatinine (Component) 1.3 mg/dL (0.6-1.3); Estimated Creatinine Clearance 65.8 mL/min (>60); Glucose 153 mg/dL (74-106); Osmolality,Calculated 279 (275-295); Sodium 138 mMol/L (136-145); eGFR > 60 See Note
[2025-01-13] MEDS: ONDANSETRON INJ 2 MG/ML INJ 2 ML 4 MG IV (11:26)
[2025-01-13 12:00] VITALS: BP 144/80; PULSE 102; PULSE 98; RESP 18; TEMP 36.1; O2SAT 91
--- NOTE | 2025-01-13 14:48 | PC.SS ---
SS met with patient regarding his d/c plan.? Pt is alert/oriented.? Pt was admitted for Mild DKA.? Pt confirmed demographic and contact information is correct on facesheet.? Pt resides alone.? Pt ambulates independently without assistance or DME.? Pt is ok with all ADLs.? 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 Patient?s pharmacy of choice is [facility] Pt named his brother, Dev Skaggs medical decision maker if he is unable.? Patient?s choice is to return home upon d/c.? Pt states he is diabetic, has glucomter, and test strips.? Pt states he is not on dialysis.? Pt followed up with PCP 1 month ago.? Brother, Dev Skaggs will provide transportation. D/C plan:? Return home Next of Kin:? Dev Skaggs, brother, phone# [phone] PCP:? Dr. Amanda Ashraf from [facility] Address:? Correct on facesheet
[2025-01-13] MEDS: Magnesium Sulfate 4 GM Ivpb 4 GM/50 ML BAG IV (15:30)
[2025-01-13 16:00] VITALS: BP 141/82; PULSE 115; PULSE 75; RESP 16; TEMP 36.1; O2SAT 97
--- NOTE | 2025-01-13 16:45 | PD.RESPRO ---
Documentation for date of: 01/13/25 Subjective Subjective Interval history: Patient seen and examined at bedside, Patient has high anion gap metabolic acidosis, improving. Will continue IV fluids, nephrology is following Electrolytes were corrected and replaced. Exam Vital Signs Temp Pulse Resp BP Pulse Ox O2 Del Method 96.9 F 98 18 144/80 H 91 L Room Air 01/13/25 12:00 01/13/25 12:00 01/13/25 12:00 01/13/25 12:00 01/13/25 12:00 01/13/25 12:00 Narrative Exam Constitutional: Well nourished and in no acute distress CVS: RRR, S1 and S2 present, no murmurs, rubs or gallops . RESP: CTAB, no SOB, no rales, rhonchi or wheezing. No respiratory Distress GI: Large but soft with normal BS, Nontender/Nondistended. MSK: Full range of motion, No trauma or deformities or masses. Skin: Warm to touch, Dry. No rashes or lesions. 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 Sensation grossly intact. Psych: (AAO) x3 . There is mild tremors when patient extends his arms but he has no hallucinations Objective Labs 01/14/25 05:50 01/14/25 05:50 Labs: Laboratory Results - last 24 hr 01/12/25 01/12/25 01/12/25 16:05 18:22 18:45 WBC 7.5 RBC 5.17 Hgb 15.7 D Hct 44.2 MCV 86 MCH 30.4 MCHC 35.5 RDW Std Deviation 40.4 Plt Count 177 D Neut % (Auto) 56 Lymph % (Auto) 39 [place] % (Auto) 4 Eos % (Auto) 0 Baso % (Auto) 0 Neut # (Auto) 4.2 Lymph # (Auto) 2.9 [place] # (Auto) 0.3 Eos # (Auto) 0.0 Baso # (Auto) 0.0 Immature Gran # (Auto) 0.02 H Absolute Nucleated RBC 0.00 Immature Gran % 0 Nucleated RBC % 0 VBG pH 7.27 L VBG pCO2 35 L VBG pO2 42 VBG O2 Sat (Chi) 71 L VBG Base Excess -10 L Sodium 130 L Potassium 3.5 Chloride 95 L Carbon Dioxide 14.3 L* Anion Gap 21 H BUN 34 H Creatinine 2.7 H D Estim Creat Clear Calc 31.8 L eGFR 27 L BUN/Creatinine Ratio 13 Glucose 340 H Calculated Osmolality 281 Lactic Acid 3.4 H Calcium 7.8 L Corrected Calcium 7.8 L Phosphorus Magnesium Total Bilirubin 0.4 AST 82 H ALT 87 H Alkaline Phosphatase 134 H Troponin I < 0.020 B-Natriuretic Peptide < 20 Total Protein 6.3 Albumin 4.2 Globulin 2.1 L Albumin/Globulin Ratio 2.0 Triglycerides Cholesterol LDL Cholesterol, Calc HDL Cholesterol Cholesterol/HDL Ratio Lipase 429 H Beta-Hydroxybutyrate/Acetoacetate 1.3 H TSH Ur Collection Type Clean Catch Urine Color Colorless A Urine Clarity Clear Urine pH 6.0 Ur Specific [place] 1.008 Urine Protein Trace Urine Glucose (UA) 4+ A Urine Ketones Trace Urine Blood 1+ A Urine Nitrite Negative Urine Bilirubin Negative Urine Urobilinogen (Auto) Negative Ur Leukocyte Esterase Negative Urine RBC 1 Urine WBC 2 Ur Squamous Epith Cells 0 Urine Bacteria None Urine Opiates Screen Negative Urine Fentanyl Screen Negative Ur Barbiturates Screen Negative U Amphetamin/Meth Scrn Negative U Benzodiazepines Scrn Negative U Cocaine Metab Screen Negative U Marijuana (THC) Screen Negative Ethyl Alcohol 398.2 H 01/12/25 01/12/25 01/12/25 20:24 20:49 22:51 WBC RBC Hgb Hct MCV MCH MCHC RDW Std Deviation Plt Count Neut % (Auto) Lymph % (Auto) [place] % (Auto) Eos % (Auto) Baso % (Auto) Neut # (Auto) Lymph # (Auto) [place] # (Auto) Eos # (Auto) Baso # (Auto) Immature Gran # (Auto) Absolute Nucleated RBC Immature Gran % Nucleated RBC % VBG pH VBG pCO2 VBG pO2 VBG O2 Sat (Chi) VBG Base Excess Sodium 140 D Potassium 3.6 Chloride 107 Carbon Dioxide 14.3 L* Anion Gap 19 H BUN 24 H Creatinine 1.9 H D Estim Creat Clear Calc 45.2 L eGFR 41 L BUN/Creatinine Ratio 13 Glucose 159 H D Calculated Osmolality 286 Lactic Acid 2.8 H Calcium 7.1 L Corrected Calcium 7.3 L Phosphorus 3.3 Magnesium 1.9 Total Bilirubin AST ALT Alkaline Phosphatase Troponin I B-Natriuretic Peptide Total Protein Albumin 3.7 D Globulin Albumin/Globulin Ratio Triglycerides Cholesterol LDL Cholesterol, Calc HDL Cholesterol Cholesterol/HDL Ratio Lipase Beta-Hydroxybutyrate/Acetoacetate TSH Ur Collection Type Urine Color Urine Clarity Urine pH Ur Specific [place] Urine Protein Urine Glucose (UA) Urine Ketones Urine Blood Urine Nitrite Urine Bilirubin Urine Urobilinogen (Auto) Ur Leukocyte Esterase Urine RBC Urine WBC Ur Squamous Epith Cells Urine Bacteria Urine Opiates Screen Urine Fentanyl Screen Ur Barbiturates Screen U Amphetamin/Meth Scrn U Benzodiazepines Scrn U Cocaine Metab Screen U Marijuana (THC) Screen Ethyl Alcohol 01/13/25 01/13/25 06:30 09:16 WBC 8.6 RBC 4.32 L Hgb 13.1 L D Hct 36.7 L MCV 85 MCH 30.3 MCHC 35.7 RDW Std Deviation 41.0 Plt Count 123 L D Neut % (Auto) 75 Lymph % (Auto) 20 [place] % (Auto) 4 Eos % (Auto) 0 Baso % (Auto) 0 Neut # (Auto) 6.4 Lymph # (Auto) 1.7 [place] # (Auto) 0.4 Eos # (Auto) 0.0 Baso # (Auto) 0.0 Immature Gran # (Auto) 0.03 H Absolute Nucleated RBC 0.00 Immature Gran % 0 Nucleated RBC % 0 VBG pH 7.35 VBG pCO2 33 L VBG pO2 49 VBG O2 Sat (Chi) 87 L D VBG Base Excess -7 L Sodium 137 138 Potassium 3.5 4.0 D Chloride 105 106 Carbon Dioxide 16.7 L 18.7 L Anion Gap 15 13 BUN 17 16 Creatinine 1.4 H D 1.3 Estim Creat Clear Calc 61.1 65.8 eGFR 59 L > 60 BUN/Creatinine Ratio 12 12 Glucose 115 H 153 H Calculated Osmolality 276 279 Lactic Acid 1.4 Calcium 7.5 L 7.6 L Corrected Calcium 7.8 L Phosphorus 1.6 L Magnesium 1.5 L Total Bilirubin 1.0 D AST 73 H ALT 69 H Alkaline Phosphatase 107 D Troponin I B-Natriuretic Peptide Total Protein 5.7 Albumin 3.6 Globulin 2.1 L Albumin/Globulin Ratio 1.7 Triglycerides 106 Cholesterol 180 LDL Cholesterol, Calc 91 HDL Cholesterol 68 H Cholesterol/HDL Ratio 2.6 L Lipase Beta-Hydroxybutyrate/Acetoacetate 3.6 H TSH 1.70 Ur Collection Type Urine Color Urine Clarity Urine pH Ur Specific [place] Urine Protein Urine Glucose (UA) Urine Ketones Urine Blood Urine Nitrite Urine Bilirubin Urine Urobilinogen (Auto) Ur Leukocyte Esterase Urine RBC Urine WBC Ur Squamous Epith Cells Urine Bacteria Urine Opiates Screen Urine Fentanyl Screen Ur Barbiturates Screen U Amphetamin/Meth Scrn U Benzodiazepines Scrn U Cocaine Metab Screen U Marijuana (THC) Screen Ethyl Alcohol ABG Interpretation ABG results: 01/12/25 01/13/25 18:22 09:16 VBG pH 7.27 L 7.35 VBG pCO2 35 L 33 L VBG pO2 42 49 VBG Base Excess -10 L -7 L Quality Measures Quality Measures none Assessment & Plan Assessment Current Active Medications: Generic Name Dose Route Start Last Admin Trade Name Freq PRN Reason Stop Dose Admin Acetaminophen 650 mg 01/12/25 22:49 Acetaminophen 325 Mg Tablet PO 02/11/25 22:48 Q6H PRN Fever >101.5 Calcium Carbonate 600 mg 01/12/25 23:00 01/13/25 08:36 Calcium Carbonate 600 Mg Tablet PO 02/11/25 22:59 600 mg BID SHIRLENE Administration Chlordiazepoxide HCl 25 mg 01/13/25 20:00 Chlordiazepoxide Hcl 25 Mg Capsule PO 01/18/25 19:59 BID SHIRLENE Dextrose 25 ml 01/12/25 22:00 Dextrose 50%-Water Inj 50 Ml Syringe IV 02/11/25 21:59 Q15MIN PRN BG 50-70 responsive npo pt Dextrose 50 ml 01/12/25 22:00 Dextrose 50%-Water Inj 50 Ml Syringe IV 02/11/25 21:59 Q15MIN PRN BG <50 OR BG <70 & pt unresponsive Folic Acid 1 mg 01/13/25 09:00 01/13/25 08:36 Folic Acid 1 Mg Tablet PO 01/18/25 08:59 1 mg BID SHIRLENE Administration Glucagon 1 mg 01/12/25 22:00 Glucagon Inj 1 Mg Vial IM Q15MIN PRN BG <70, and no IV access Heparin Sodium (Porcine) 5,000 unit 01/13/25 06:00 01/13/25 14:00 Heparin Sod Inj 5000 Unit/Ml Vial SC 01/27/25 05:59 Not Given Q8HR SHIRLENE Sodium Chloride 1,000 mls @ 125 mls/hr 01/12/25 23:00 01/13/25 16:01 Ns IV 02/11/25 22:59 125 mls/hr .Q8H SHIRLENE Administration Magnesium Sulfate 4 gm in 50 mls @ 12.5 mls/hr 01/13/25 14:30 01/13/25 15:30 Magnesium Sulfate Ivpb IV 01/13/25 18:29 12.5 mls/hr X1 ONE Administration Insulin Glargine 18 unit 01/12/25 22:00 01/12/25 22:55 Insulin Glargine (Lantus) 5 Unit/0.05 Ml (Per 5 Units) SC 02/11/25 21:59 18 unit HS SHIRLENE Administration Insulin Human Lispro 0 unit 01/12/25 22:00 01/13/25 10:00 Insulin Lispro (Admelog) 1 Unit/0.01 Ml Unit SC 02/11/25 21:59 Not Given Q6H SHIRLENE Protocol Lorazepam 0.5 mg 01/12/25 22:02 Lorazepam 2 Mg/Ml Vial IV 01/17/25 22:01 Q4HR PRN CIWA SCORE 8-13 Lorazepam 2 mg 01/12/25 22:09 Lorazepam 2 Mg/Ml Vial IVP 01/17/25 22:14 Q6H PRN Agitation (Severe), breakthrou Lorazepam 1 mg 01/12/25 22:08 Lorazepam 2 Mg/Ml Vial IV 01/17/25 22:07 Q4HR PRN CIWA SCORE 14-19 Lorazepam 0.5 mg 01/12/25 22:02 Lorazepam 0.5 Mg Tablet PO 01/17/25 22:01 Q4HR PRN CIWA Score 2-6 Ondansetron HCl 4 mg 01/13/25 11:21 01/13/25 11:26 Ondansetron Inj 2 Mg/Ml Inj 2 Ml IV 02/12/25 11:20 4 mg Q8HR PRN Administration NAUSEA OR VOMITING Protocol Pantoprazole Sodium 40 mg 01/12/25 23:00 01/13/25 08:35 Pantoprazole Inj 40 Mg Vial IVP 02/11/25 22:59 40 mg BID SHIRLENE Administration Thiamine HCl 100 mg 01/13/25 09:00 01/13/25 08:36 Thiamine 100 Mg Tablet PO 01/18/25 08:59 100 mg BID SHIRLENE Administration Plan The patient is a 54-year-old male with significant past medical history of diabetes mellitus type 2, hypertension and alcohol abuse disorder presented to ED with chief complaint of generalized weakness and increased blood sugar. The patient is admitted to telemetry unit for further management of hypovolemic shock, possible mild DKA and alcohol withdrawal. #Generalized weakness 2/2 #Hypovolemia, improved 2/2 #Alcohol intoxication #High anion gap metabolic acidosis, lactic acidosis and mild DKA Acidosis likely multifactorial from alcohol intoxication, elevated lactate, fanny. Given very mild elevation in BHB, low suspicion for DKA Patient presented with chief complaint of generalized weakness and has been binge drinking for the past 2 weeks, and has history of diabetes mellitus type 2 Initial blood sugar was 340, BHB 1.3, anion gap 21, bicarb 14.3 and blood pressure of 79/47, pulse 115. Lactic acid was 3.4 initially Anion gap, lactic acid, blood glucose improved significantly after 4 L IV bolus fluid. Received 4 L IV bolus fluid in the ED -Continue maintenance IV fluid normal saline 150 cc/h -Follow BMP every 6 hours - Daily a.m. labs for CBC, CMP and electrolytes #FANNY Prerenal in the setting of hypovolemic shock Presented with creatinine of 2.7 that improved to 1.9 after 4 L of IV bolus fluid - Renally dose medications - Avoid nephrotoxic drugs - On maintenance normal saline 150 cc/h - Daily a.m. labs for CMP and electrolytes - Chief Supply Chain Officer Dr. Workman consulted, appreciate recommendations #Alcohol withdrawal #Alcohol abuse disorder The patient was binge drinking until this morning, and has been having generalized weakness for past couple of days, urine Ethyl alcohol level was 398.2 - Started on CIWA protocol - Started on thiamine 100 Mg p.o. twice daily and folic acid 1 Mg daily - Daily a.m. labs for CMP and electrolytes, and replete electrolytes as needed - Social service referral done #Mild transaminitis Secondary to binge drinking Presented with AST/ALT 82/87, ALP 134 - Daily a.m. labs were CMP #Diabetes mellitus type 2 #Hyperglycemia UA is positive for 4+ glucose and trace protein - Started on insulin Lantus 18 units daily at night and initial sliding scale insulin lispro every 6 hourly along with fingerstick blood sugar - Consider resuming lisinopril as tolerated #Right lower lobe pulmonary nodule #Bilateral hydronephrosis #Left nephrolithiasis Chest/abdomen/pelvis CT revealed 6 mm pulmonary nodule on right lower lobe, no pneumonia or pulmonary edema, gastritis pattern, prominent perinephric stranding consistent with UTI with bilateral mild hydronephrosis, on the left side secondary to 7 mm distal left ureterovesicular junction calculus. - Follow-up CT chest in 6 months for pulmonary nodule - Received Zosyn IV x 1 in the ED, may consider adding antibiotics if develops any UTI symptoms - Encourage oral rehydration - May consider adding tamsulosin 0.4 Mg daily for left nephrolithiasis #Hypocalcemia Presented with corrected calcium level 7.3 Likely nutritional deficiency - Started on calcium carbonate 600 Mg p.o. twice daily - Daily a.m. labs for corrected calcium Health maintenance: Dispo: Patient admitted to telemetry unit for further management of hypovolemic shock, possible DKA and alcohol withdrawal. Diet: Carb consistent diet DVT prophylaxis: Subcu heparin every 8 hourly CODE STATUS: Full code Case discussed with Attending Dr. Patel. Cortney Maire PGY1 Disclaimer: This note was dictated by speech recognition. Minor errors in trouble locator test desk may be present due to voice recognition software. Attending Provider Attestation/Addendum 54-year-old male patient with alcohol use disorder was admitted for hyperglycemia, possible alcohol withdrawal, FANNY found to have transaminitis related to alcohol use. The patient wanted to go home today. Patient is being followed by Dr. Workman for FANNY he has good urine output. He denies shortness of breath. He was vomiting again later in the morning.
[2025-01-13 16:54] LABS: Anion Gap 15 (7-16); BUN/Creatinine Ratio 10 Ratio (12-20); Blood Urea Nitrogen 12 mg/dL (9-23); Calcium 7.8 mg/dL (8.3-10.6); Carbon Dioxide 16.4 mMol/L (20.0-31.0); Chloride 106 mMol/L (98-107); Creatinine (Component) 1.2 mg/dL (0.6-1.3); Estimated Creatinine Clearance 71.3 mL/min (>60); Glucose 125 mg/dL (74-106); Osmolality,Calculated 274 (275-295); Potassium 4.5 mMol/L (3.4-5.1); Sodium 137 mMol/L (136-145); eGFR > 60 See Note
[2025-01-13] MEDS: chlordiazePOXIDE HCl 25 MG CAPSULE PO (19:38)
[2025-01-13 20:00] VITALS: BP 153/98; PULSE 83; PULSE 87; RESP 23; TEMP 36.1; O2SAT 97
[2025-01-13] MEDS: INSULIN GLARGINE (Lantus) 5 UNIT/0.05 ML (PER 5 UNITS) 18 UNIT SC (21:12)
[2025-01-13 23:40] LABS: Anion Gap 13 (7-16); BUN/Creatinine Ratio 10 Ratio (12-20); Blood Urea Nitrogen 11 mg/dL (9-23); Calcium 8.1 mg/dL (8.3-10.6); Carbon Dioxide 18.6 mMol/L (20.0-31.0); Chloride 105 mMol/L (98-107); Creatinine (Component) 1.1 mg/dL (0.6-1.3); Estimated Creatinine Clearance 77.4 mL/min (>60); Glucose 105 mg/dL (74-106); Osmolality,Calculated 273 (275-295); Potassium 4.8 mMol/L (3.4-5.1); Sodium 137 mMol/L (136-145); eGFR > 60 See Note
[2025-01-13] MEDS: LORazepam 0.5 MG TABLET PO (23:58)
[2025-01-13] MEDS: ACETAMINOPHEN 325 MG TABLET 650 MG PO (23:58)
[2025-01-14] VITALS (10 sets, daily range): BP systolic 157–176; BP diastolic 91–103; PULSE 75–114; RESP 14–18; TEMP 36.1–36.6; O2SAT 96–98
[2025-01-14 06:29] LABS: Basophils % (Auto) 1 % (0-2.5); Eosinophils # (Auto) 0.1 Thou/mm3 (0.0-0.5); Eosinophils % (Auto) 1 % (0-10); Hematocrit 41.7 % (41.0-53.0); Hemoglobin 14.5 g/dL (13.5-16.0); Immature Granulocytes % (Auto) 0 % (0-0); Immature Granulocytes Auto 0.02 Thou/mm3 (0.00-0.00); Lymphocytes # (Auto) 1.7 Thou/mm3 (1.0-4.8); Lymphocytes % (Auto) 30 % (10-50); Mean Corpuscular HGB Conc 34.8 g/dl (31.0-37.0); Mean Corpuscular Hemoglobin 30.1 pg (25.0-35.0); Mean Corpuscular Volume 87 fL (80-100); Monocytes # (Auto) 0.3 Thou/mm3 (0.0-0.8); Monocytes % (Auto) 6 % (0-12); Neutrophils # (Auto) 3.6 Thou/mm3 (1.8-7.7); Neutrophils % (Auto) 62 % (37-80); Nucleated Red Blood Cell % 0 /100 WBC (0); Platelet Count 105 Thou/mm3 (140-440); RDW Standard Deviation 40.6 fL (35.1-43.9); Red Blood Count 4.82 Miln/mm3 (4.50-5.90); White Blood Count 5.8 Thou/mm3 (3.8-10.6)
[2025-01-14 06:36] LABS: Alanine Aminotransferase 64 U/L (10-49); Albumin/Globulin Ratio 1.7 (1.2-2.2); Alkaline Phosphatase 121 U/L (46-116); Anion Gap 15 (7-16); Aspartate Amino Transferase 56 U/L (0-34); BUN/Creatinine Ratio 12 Ratio (12-20); Bilirubin,Total 0.7 mg/dL (0.3-1.2); Blood Urea Nitrogen 12 mg/dL (9-23); Carbon Dioxide 18.6 mMol/L (20.0-31.0); Chloride 104 mMol/L (98-107); Estimated Creatinine Clearance 85.2 mL/min (>60); Globulin 2.4 gm/dL (2.3-3.5); Glucose 94 mg/dL (74-106); Magnesium 1.9 mg/dL (1.6-2.6); Osmolality,Calculated 275 (275-295); Phosphorous 2.3 mg/dL (2.4-5.1); Sodium 138 mMol/L (136-145); Total Protein 6.4 gm/dL (5.7-8.2); eGFR > 60 See Note
[2025-01-14] MEDS: SODIUM CHLORIDE 0.9% 1000 ML 1,000 ML 125 ML IV (07:37)
[2025-01-14] MEDS: chlordiazePOXIDE HCl 25 MG CAPSULE PO (08:20)
[2025-01-14] MEDS: NAPH,KPH MBDB 1 PACKET (1.5 GM) PO (08:20)
[2025-01-14] MEDS: CALCIUM CARBONATE 600 MG TABLET PO (08:20)
[2025-01-14] MEDS: FOLIC ACID 1 MG TABLET PO (08:21)
[2025-01-14] MEDS: PANTOPRAZOLE INJ 40 MG VIAL IVP (08:21)
[2025-01-14] MEDS: THIAMINE 100 MG TABLET PO (08:21)
[2025-01-14] MEDS: Lisinopril 2.5 MG TABLET 10 MG PO ×2 (08:32→12:25)
[2025-01-14 09:17] LABS: Glucose Estimated Average 186 mg/dL (80-131); Hemoglobin A1C 8.1 % Hgb (4.8-6.0)
--- NOTE | 2025-01-14 09:44 | ESPR_ITS ---
Documentation for date of: 01/14/25 Subjective Subjective Interval history: Mr. baker is a 54-year-old male with past medical history of diabetes, hypertension, alcohol abuse that had previously remain abstinence but recently relapsed with binge drinking that presented to the ED with complaints of generalized weakness. Patient was seen at bedside with his niece and her brother who explained that patient had previously remain abstinent from alcohol until 2 weeks ago when he traveled to [place] and thus when he started binge drinking for total of 2 weeks. He has been drinking half a pint of tequila every day for the last 2 weeks until he started complaining of generalized weakness the day prior to admission. In the ED patient was found to have ketoacidosis with a anion gap of 21 lactic acid of 3.4 alcohol level of 398 and an beta-hydroxybutyrate of 1.3 and glucose level of 340. Patient was also found to have an FANNY with a creatinine of 2.7 from a baseline of 1.0 and a bicarb of 14.3. Patient was given 3 L boluses of NS in the ED and was started on CIWA protocol. Nephrology team was consulted for FANNY as well as anion gap metabolic acidosis. 01/14/25: Patient was seen and examined this morning. There were no major overnight events the patient is doing well this morning. He was slightly hypertensive however his kidney function has greatly improved and is back to baseline with a creatinine of 1.0 and a BUN of 12. Patient is tolerating diet well. Patient can be discharged from nephro perspective and no need to follow- up outpatient. Exam Vital Signs Temp Pulse Resp BP Pulse Ox O2 Del Method 97.7 F 81 18 167/95 H 98 Room Air 01/14/25 08:00 01/14/25 08:32 01/14/25 08:00 01/14/25 08:32 01/14/25 08:00 01/14/25 08:00 Narrative Exam Constitutional: Well nourished and in no acute distress Head: Normocephalic/Atraumatic Eyes: PERRL , no conjunctival injection , symmetrical lids. ENMT: Moist Mucous Membranes, No trauma or injury. Neck: Supple to palpation, No JVD CVS: RRR, S1 and S2 present, no murmurs, rubs or gallops . RESP: CTAB, no SOB, no rales, rhonchi or wheezing. No respiratory Distress GI: Normal BS, Nontender/Nondistended. MSK: Full range of motion, No trauma or deformities or masses. Skin: Warm to touch, Dry. No rashes or lesions. No hematomas Neuro: animal services officer II-XII grossly intact. Sensation grossly intact. Psych: (AAO) x3 . Appropriate mood and affect. Objective Labs 01/14/25 05:50 01/14/25 05:50 Labs: Laboratory Results - last 24 hr 01/13/25 01/13/25 01/13/25 09:16 16:08 23:08 WBC RBC Hgb Hct MCV MCH MCHC RDW Std Deviation Plt Count Neut % (Auto) Lymph % (Auto) [place] % (Auto) Eos % (Auto) Baso % (Auto) Neut # (Auto) Lymph # (Auto) [place] # (Auto) Eos # (Auto) Baso # (Auto) Immature Gran # (Auto) Absolute Nucleated RBC Immature Gran % Nucleated RBC % VBG pH 7.35 VBG pCO2 33 L VBG pO2 49 VBG O2 Sat (Chi) 87 L D VBG Base Excess -7 L Sodium 138 137 137 Potassium 4.0 D 4.5 D 4.8 Chloride 106 106 105 Carbon Dioxide 18.7 L 16.4 L 18.6 L Anion Gap 13 15 13 BUN 16 12 11 Creatinine 1.3 1.2 1.1 Estim Creat Clear Calc 65.8 71.3 77.4 eGFR > 60 > 60 > 60 BUN/Creatinine Ratio 12 10 L 10 L Glucose 153 H [address] Glu mg/dL Hemoglobin A1c Calculated Osmolality 279 274 L 273 L Lactic Acid 1.4 Calcium 7.6 L 7.8 L 8.1 L Corrected Calcium Phosphorus Magnesium Total Bilirubin AST ALT Alkaline Phosphatase Total Protein Albumin Globulin Albumin/Globulin Ratio Beta-Hydroxybutyrate/Acetoacetate 3.6 H 01/14/25 05:50 WBC 5.8 RBC 4.82 Hgb 14.5 Hct 41.7 MCV 87 MCH 30.1 MCHC 34.8 RDW Std Deviation 40.6 Plt Count 105 L Neut % (Auto) 62 Lymph % (Auto) 30 [place] % (Auto) 6 Eos % (Auto) 1 Baso % (Auto) 1 Neut # (Auto) 3.6 Lymph # (Auto) 1.7 [place] # (Auto) 0.3 Eos # (Auto) 0.1 Baso # (Auto) 0.0 Immature Gran # (Auto) 0.02 H Absolute Nucleated RBC 0.00 Immature Gran % 0 Nucleated RBC % 0 VBG pH VBG pCO2 VBG pO2 VBG O2 Sat (Chi) VBG Base Excess Sodium 138 Potassium 4.0 D Chloride 104 Carbon Dioxide 18.6 L Anion Gap 15 BUN 12 Creatinine 1.0 Estim Creat Clear Calc 85.2 eGFR > 60 BUN/Creatinine Ratio [address] Glu mg/dL 186 H Hemoglobin A1c 8.1 H Calculated Osmolality 275 Lactic Acid Calcium 8.0 L Corrected Calcium 8.0 L Phosphorus 2.3 L Magnesium 1.9 Total Bilirubin 0.7 AST 56 H ALT 64 H Alkaline Phosphatase 121 H Total Protein 6.4 Albumin 4.0 Globulin 2.4 Albumin/Globulin Ratio 1.7 Beta-Hydroxybutyrate/Acetoacetate ABG Interpretation ABG results: 01/12/25 01/13/25 18:22 09:16 VBG pH 7.27 L 7.35 VBG pCO2 35 L 33 L VBG pO2 42 49 VBG Base Excess -10 L -7 L Quality Measures Quality Measures none Assessment & Plan Assessment Current Active Medications: Generic Name Dose Route Start Last Admin Trade Name Freq PRN Reason Stop Dose Admin Acetaminophen 650 mg 01/13/25 23:54 01/13/25 23:58 Acetaminophen 325 Mg Tablet PO 02/11/25 22:48 650 mg Q6H PRN Administration Fever >100.4 or pain Calcium Carbonate 600 mg 01/12/25 23:00 01/14/25 08:20 Calcium Carbonate 600 Mg Tablet PO 02/11/25 22:59 600 mg BID SHIRLENE Administration Chlordiazepoxide HCl 25 mg 01/13/25 20:00 01/14/25 08:20 Chlordiazepoxide Hcl 25 Mg Capsule PO 01/18/25 19:59 25 mg BID SHIRLENE Administration Dextrose 25 ml 01/12/25 22:00 Dextrose 50%-Water Inj 50 Ml Syringe IV 02/11/25 21:59 Q15MIN PRN BG 50-70 responsive npo pt Dextrose 50 ml 01/12/25 22:00 Dextrose 50%-Water Inj 50 Ml Syringe IV 02/11/25 21:59 Q15MIN PRN BG <50 OR BG <70 & pt unresponsive Folic Acid 1 mg 01/13/25 09:00 01/14/25 08:21 Folic Acid 1 Mg Tablet PO 01/18/25 08:59 1 mg BID SHIRLENE Administration Glucagon 1 mg 01/12/25 22:00 Glucagon Inj 1 Mg Vial IM Q15MIN PRN BG <70, and no IV access Heparin Sodium (Porcine) 5,000 unit 01/13/25 06:00 01/14/25 05:39 Heparin Sod Inj 5000 Unit/Ml Vial SC 01/27/25 05:59 Not Given Q8HR SHIRLENE Insulin Glargine 18 unit 01/12/25 22:00 01/13/25 21:12 Insulin Glargine (Lantus) 5 Unit/0.05 Ml (Per 5 Units) SC 02/11/25 21:59 18 unit HS SHIRLENE Administration Insulin Human Lispro 0 unit 01/12/25 22:00 01/14/25 03:59 Insulin Lispro (Admelog) 1 Unit/0.01 Ml Unit SC 02/11/25 21:59 Not Given Q6H [facility] Protocol Lisinopril 10 mg 01/14/25 09:00 01/14/25 08:32 Lisinopril 2.5 Mg Tablet PO 02/13/25 08:59 10 mg QDAY SHIRLENE Administration Lorazepam 0.5 mg 01/12/25 22:02 Lorazepam 2 Mg/Ml Vial IV 01/17/25 22:01 Q4HR PRN CIWA SCORE 8-13 Lorazepam 2 mg 01/12/25 22:09 Lorazepam 2 Mg/Ml Vial IVP 01/17/25 22:14 Q6H PRN Agitation (Severe), breakthrou Lorazepam 1 mg 01/12/25 22:08 Lorazepam 2 Mg/Ml Vial IV 01/17/25 22:07 Q4HR PRN CIWA SCORE 14-19 Lorazepam 0.5 mg 01/12/25 22:02 01/13/25 23:58 Lorazepam 0.5 Mg Tablet PO 01/17/25 22:01 0.5 mg Q4HR PRN Administration CIWA Score 2-6 Ondansetron HCl 4 mg 01/13/25 11:21 01/13/25 11:26 Ondansetron Inj 2 Mg/Ml Inj 2 Ml IV 02/12/25 11:20 4 mg Q8HR PRN Administration NAUSEA OR VOMITING Protocol Pantoprazole Sodium 40 mg 01/12/25 23:00 01/14/25 08:21 Pantoprazole Inj 40 Mg Vial IVP 02/11/25 22:59 40 mg BID SHIRLENE Administration Potassium Phos/Sodium Phos 1 packet 01/14/25 09:00 01/14/25 08:20 [place] Mbdb 1 Packet (1.5 Gm) PO 01/14/25 21:01 1 packet BID SHIRLENE Administration Thiamine HCl 100 mg 01/13/25 09:00 01/14/25 08:21 Thiamine 100 Mg Tablet PO 01/18/25 08:59 100 mg BID SHIRLENE Administration Plan 54-year-old male with past medical history of diabetes, hypertension, alcohol abuse admitted for FANNY and anion gap metabolic acidosis #FANNY- resolved #Anion gap metabolic acidosis #Alcoholic ketoacidosis Patient presented with a creatinine of 2.7 from a baseline of 1.0. His anion gap was 21 on admission with a lactate level of 3.4, beta hydroxybutyrate level of 1.3, bicarb of 14.3 glucose of 340 and pH of 7.27 Patient's chief complaint was generalized weakness with mild nausea but no vomiting. He had previously abstained for over 3 years without alcohol but on recent trip to [facility] he started drinking again and had a episode of binge drinking half a pint of tequila for the last 2 weeks. Patient's ethyl alcohol level in the room was 398 Patient is FANNY and anion gap metabolic acidosis is likely due to alcoholic ketoacidosis with possible concomitant diabetic ketoacidosis His glucose has been easily controlled with sliding scale and recent blood sugar levels have been low at 76. Patient is tolerating diet well Plan: ? Patient is doing well and fanny has resolved - Can be discharged from nephrology perspective - No need for outpatient follow up #Alcohol withdrawal #Alcohol abuse disorder #Mild transaminitis Secondary to binge drinking #Diabetes mellitus type 2 #Hyperglycemia #Right lower lobe pulmonary nodule #Bilateral hydronephrosis #Left nephrolithiasis #Hypocalcemia ?Managed by primary team. Thank you for allowing us to be part of patient's care during his time at [facility] I discussed patient's care with attending physician, Dr Jacinta Carbajal PGY3 Attending Provider Attestation/Addendum Patient seen and examined with resident physician Dr. Carbajal. Note reviewed, agree with findings and recommendations. Acute renal failure most likely related to prerenal azotemia. Patient also noted to have alcoholic ketoacidosis with anion gap. Agree with aggressive fluid resuscitation. Patient more alert and awake. His creatinine normal. Electrolytes normalized. Renal swartz stable for discharge. Plan of care discussed with nephew at bedside Plan of care discussed with primary team.
[2025-01-14] MEDS: LABETALOL INJ 5 MG/ML VIAL 20 ML 10 MG IVP (12:26)
--- NOTE | 2025-01-14 12:47 | ESDS_ITS ---
Planned Discharge Date 01/14/25 DS: Providers Provider Date of admission: 01/12/25 21:57 Primary care physician: Rob Orellana MD Admitting Provider: Stef Nguyen MD Attending Provider on Admission: Paul Patel MD Consults: 01/12/25 22:57 Consult to Nephrology Routine Comment: FANNY Consulting Provider: Prince Workman Attending Provider on DC: Paul Patel MD Discharging Provider: Paul Patel MD Anticipated date of discharge: 01/14/25 DS: Diagnosis Problem List Completed Was Problem List Reviewed/Reconciled?: Yes Hospital Course Hospital Course Hospital course: Hospital course: Mr. Skaggs is a 54-year-old male with past medical history of diabetes mellitus, hypertension, alcohol abuse who presented to the ED with complaint of generalized weakness and increased blood glucose. Patient admitted for hypovolemic shock, mild DKA and alcohol withdrawal. Patient was started on CIWA protocol, was started on IV fluids, nephrology was consulted in setting of FANNY and acidosis. With the progression of hospital course patient's acidosis improved, patient received significant amount of IV fluids. Patient had elevated blood pressure, hypertensive regimen was optimized, patient to be discharged on lisinopril 20 mg daily and amlodipine 10 mg daily, patient to follow-up with primary care physician in 1 to 2 weeks, advised to keep a log of blood pressure. Patient condition has improved remarkably, patient is stable for discharge. Patient responded well to hospital treatment. Discharge Diagnosis: #FANNY- resolved #Anion gap metabolic acidosis #Alcoholic ketoacidosis #Mild DKA #Hypertensive urgency ##Generalized weakness 2/2 #Hypovolemia, improved 2/2 #Alcohol intoxication #Alcohol withdrawal #Alcohol abuse disorder #Mild transaminitis #Right lower lobe pulmonary nodule #Bilateral hydronephrosis #Left nephrolithiasis #Diabetes mellitus type 2 #Hyperglycemia #Hypocalcemia Case discussed with Attending Dr. Patel. Cortney Marie PGY1 Disclaimer: This note was dictated by speech recognition. Minor errors in waste water or water plant operator may be present due to voice recognition software. Time Spent with Patient Time attestation: Total time spent providing and/or coordinating discharge services: Time spent: Greater than 30 minutes Exam Vital Signs Temp Pulse Resp BP Pulse Ox O2 Del Method 97.7 F 103 H 18 176/103 H 98 Room Air 01/14/25 08:00 01/14/25 12:28 01/14/25 08:00 01/14/25 12:28 01/14/25 08:00 01/14/25 08:00 Narrative Exam Constitutional: Well nourished and in no acute distress Head: Normocephalic/Atraumatic Eyes: PERRL , no conjunctival injection , symmetrical lids. ENMT: Moist Mucous Membranes, No trauma or injury. Neck: Supple to palpation, No JVD CVS: RRR, S1 and S2 present, no murmurs, rubs or gallops . RESP: CTAB, no SOB, no rales, rhonchi or wheezing. No respiratory Distress GI: Normal BS, Nontender/Nondistended. MSK: Full range of motion, No trauma or deformities or masses. Skin: Warm to touch, Dry. No rashes or lesions. No hematomas Neuro: personal service representative II-XII grossly intact. Sensation grossly intact. Psych: (AAO) x3 . Appropriate mood and affect. Discharge Plan Plan Patient Disposition: HOME (Self Care) Patient condition on transfer: Stable Prescriptions/Referrals Prescriptions/Med Rec: New lisinopril 20 mg tablet 20 mg PO QDAY Qty: 30 2RF amlodipine 10 mg tablet 10 mg PO QDAY 30 Days Qty: 30 0RF Continued Synjardy 12.5-1,000 mg tablet 1 tab PO BID Patient Comments: TAKE 1 TABLET BY MOUTH TWICE DAILY WITH MEALS Rybelsus 14 mg tablet 14 mg PO QDAY Patient Comments: TAKE 1 TABLET BY MOUTH ONCE DAILY AT LEAST 30 MINTES BEFORE FIRST FOOD, BEVERAGE, OR OTHER MEDICINE OF THE DAY atorvastatin 20 mg tablet 20 mg PO QDAY Patient Comments: TAKE 1 TABLET BY MOUTH ONCE DAILY ibuprofen [IBU] 600 mg tablet 600 mg PO TID PRN (Reason: pain) Discontinued lisinopril 10 mg tablet 10 mg PO QDAY Referrals: Rob Orellana MD [Primary Care Provider] - Patient/Caregiver Discharge Instructions Other Discharge Activity Instructions:: Use Amlodipine and Lisinopril for blood pressure management. Continue all home medications. Abstain from alcohol use, continue all diabetes medications. Follow-up with primary care physician in 1 week, repeat CMP. Return to emergency department if your symptoms worsen. Other Discharge Diet Instructions: Low carbohydrate diet, diabetic diet. Education Materials: Diabetes and Drinking Alcohol, Diabetes: Caring for Your Body, Diabetes Exercise Get Started, ED Alcohol Intoxication Print Language: Amharic Stand Alone Forms: Laurie Award Info., Patient Portal Info Letter Discharge Order Discharge Orders: Discharge (Routine); Ordered 01/14/25 Ordered By: Cortney Marie Quality Discharge Quality Measures VTE prophylaxis MD Attestestation MD Attestation I discussed with and supervised the resident physician who took care of this patient. I agree with the assessment and discharge plan as above.
[2025-01-14] MEDS: amLODIPine BESYLATE 5 MG TABLET 10 MG PO (14:03)
--- NOTE | 2025-01-14 15:00 | PC.NURSE ---
Pt ok to discharge per Dr. Marie, BP 159/96. Strict education given to pt and brother at bedside to monitor bp closely and to come back to ER if raises over 180/100. Pt and brother verbalized understanding of taking bp every day and keeping log for pcp to look at during follow up appt. Pt and brother at bedside verbalized understanding of follow up appt and to schedule lab test with pcp. 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 Resources given and educated pt to abstain from alcohol usage.
== END 2025-01-14 15:20 | disposition home or self-care (01) | DRG 896 ==
LOC: SERX 18:32 → SERHOLD 22:06 → S2NX 01-13 01:31
PROVIDERS: Emergency Medicine; Nurse Practitioner Family; Student in an Organized Health Care Education/Training Program; Admitting Provider Student in an Organized Health Care Education/Training Program; Emergency Provider Emergency Medicine; PCP Family Medicine; Visit Provider Internal Medicine
DX: F10.239 Alcohol dependence with withdrawal, unspecified (principal); E11.10 Type 2 diabetes mellitus with ketoacidosis without coma; R57.1 Hypovolemic shock; N17.9 Acute kidney failure, unspecified; N13.6 Pyonephrosis; F10.229 Alcohol dependence with intoxication, unspecified; E11.65 Type 2 diabetes mellitus with hyperglycemia; I10 Essential (primary) hypertension; E86.0 Dehydration; Y90.8 Blood alcohol level of 240 mg/100 ml or more; R91.1 Solitary pulmonary nodule; E83.51 Hypocalcemia; E86.1 Hypovolemia; E63.9 Nutritional deficiency, unspecified; I16.0 Hypertensive urgency; Z79.4 Long term (current) use of insulin
CPT/HCPCS: 36415; 70450; 71250; 74176; 80048; 80053; 80061; 80069; 80307; 80320; 81001; 82010; 82803; 82947; 83036; 83605; 83690; 83735; 83880; 84100; 84443; 84484; 85025; 87040; 87086; 93005; 96361; 96365; 96367; 96372; 96375; 99291; J1643; J1815; J2405; J2470; J2543; J3411; J3475; J3480; J3490; J7030; J7040; A9270; G0480; J1920